=== PATIENT | female | born 1945 | race Caucasian/White ===

== ENCOUNTER 2025-01-10 13:14 | Inpatient (IN) | payer OTHER, SELFPAY ==
[2025-01-10] VITALS (17 sets, daily range): BP systolic 115–133; BP diastolic 57–75; PULSE 83–88; RESP 16–21; TEMP 37.1–37.5; O2SAT 95–100; BMI 21.9; BMI 24.3
--- OUTSIDE RECORDS SUMMARY | 2025-01-10 13:16 | XMS_ITS | Clinical Summary ---
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 She thinks maybe they said it had caused swelling and redness?? Medications gabapentin (NEURONTIN) 600 mg tablet Take 1.5 tablets (900 mg) by mouth 2 times a day 5 Active traMADol (ULTRAM) 50 mg tablet Take 1 tablet (50 mg) by mouth 2 times a day 5 Active albuterol HFA (PROVENTIL,PROAIR ,VENTOLIN) 108 (90 Base) MCG/ACT inhaler Inhale 1 puff orally every 6 hours as needed 9 Active allopurinol (ZYLOPRIM) 100 mg tablet Take 1 tablet (100 mg) by mouth 4 Active aspirin 81 mg enteric coated tablet Take 1 tablet (81 mg) by mouth 5 Active atorvaSTATin (LIPITOR) 40 mg tablet Take 1 tablet (40 mg) by mouth 5 Active ALLERGY RELIEF, CETIRIZINE, 10 MG tablet Take 1 tablet (10 mg) by mouth 1 time per day 5 Active FARXIGA 10 MG tablet Take 1 tablet (10 mg) by mouth 5 Active furosemide (LASIX) 40 mg tablet Take 1.5 tablets (60 mg) by mouth as needed needed for weight gain 3lbs in one day or 5lbs in a week 5 Active semaglutide (OZEMPIC) 4 mg/3 mL subcutaneous injection solution (pen) Inject 1 mg under the skin 5 Active Glucose 4-6 GM-MG CHEW Chew 4 g as needed 6 Active insulin aspart (NOVOLOG) SOPN subcutaneous injection (pen) Inject 2-8 Units under the skin as needed 4 Active isosorbide MONOnitrate (IMDUR) 30 mg SR tablet (24 hr) Take 0.5 tablets (15 mg) by mouth 1 time a day in the morning 4 Active L-METHYLFOLATE CALCIUM PO Take 1 tablet by mouth 2 times a day 5 Active losartan 25 mg tablet Take 0.5 tablets (12.5 mg) by mouth 5 Active meclizine (ANTIVERT) 25 mg tablet Take 1 tablet (25 mg) by mouth 3 times a day 4 Active metoprolol succinate (TOPROL XL) 25 mg SR tablet (24 hr) Take 1 tablet (25 mg) by mouth 1 time per day 4 Active mirtazapine (REMERON) 30 mg tablet Take 1.5 tablets (45 mg) by mouth every night at bedtime 4 Active nitroglycerin (NITROSTAT) 0.4 mg sublingual tablet Dissolve 1 tablet (0.4 mg) under the tongue as needed 5 Active omeprazole 20 mg enteric coated tablet Take 1 tablet (20 mg) by mouth 2 times a day 5 Active OZEMPIC, 2 MG/DOSE, 8 MG/3ML subcutaneous injection solution (pen) Inject 2 mg under the skin 1 time a week 5 Active spironolactone (ALDACTONE) 25 mg tablet Take 0.5 tablets (12.5 mg) by mouth 1 time per day 5 Active Encounters Date Type Department Care Team Description 10/29/2024 4:27 PM CDT - 10/29/2024 11:59 PM CDT Hospital Encounter 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 No 09/16/2024 Does the patient display any signs or symptoms of abuse or neglect? No 09/16/2024 Comments No Sex and Gender Information Value Date Recorded Sex Assigned at Not on file Legal Sex Female 9:41 PM CDT Gender Identity Not on file Sexual Orientation Not on file Last Filed Vital Signs Vital Sign Reading Time Taken Comments Blood Pressure 96/54 09/16/2024 3:34 PM CDT Pulse 65 09/16/2024 3:34 PM CDT Temperature 36.2 C (97.2 F) 09/16/2024 3:34 PM CDT Respiratory Rate 16 09/16/2024 3:34 PM CDT Oxygen Saturation 97% 09/16/2024 3:34 PM CDT Inhaled Oxygen Concentration - - Weight 57.6 kg (127 lb) 09/16/2024 11:51 AM CDT Height 157.5 cm (5' 2) 09/16/2024 11:51 AM CDT Body Mass Index 23.23 09/16/2024 11:51 AM CDT Plan of Treatment Health Maintenance Due Date Last Done Comments Hepatitis C Screening 1945 Pneumococcal Vaccine 50yr + (1 of 2 - PCV) 06/14/1966 TDAP/TD VACCINE (1 - Tdap) 06/14/1968 Zoster Vaccine (1 of 2) 06/14/1997 [employer] Directive document 06/14/2012 RSV Vaccine, Adult (1 - 1-dose 75+ series) 06/14/2022 Covid-19 Vaccine (1 - 2024- season) 2024 Influenza Vaccine (#1) 2024 , 01/15/2023, 02/24/2022, Additional history exists Creatinine 12/11/2025 12/11/2024, 10/17, 10/01/2024, Additional history exists Diabetes Screening 12/12/2027 12/11/2024, 0 11/20/2024, 10/29/2024, Additional history exists DEXA/Heel Scan 05/28/2028 05/28/2013 Hepatitis B Vaccine Aged Out No longe r eligible based on patient's age to complete this topic Procedures Procedure Name Priority Date/Time Associated Diagnosis Comments BASIC METABOLIC PANEL Routine 10/29/2024 4:29 PM CDT Chronic HFrEF (heart failure with reduced ejection fraction) (HCC) from Last 3 Months Results * (ABNORMAL) BASIC METABOLIC PANEL (10/29/2024 4:29 PM CDT) Glucose 150(H) 70 - 105 mg/dL 10/29/2024 4:57 PM CDT [facility] BUN 24 7 - 25 mg/dL 10/29/2024 4:57 PM CDT [facility] Creatinine 1.66(H) 0.60 - 1.30 mg/dL 10/29/2024 4:57 PM CDT [facility] BUN/Creatinine Ratio 14.5 6.0 - 25.0 10/29/2024 4:57 PM CDT [facility] Sodium 134(L) 136 - 145 meq/L 10/29/2024 4:57 PM CDT [facility] Potassium 3.9 3.5 - 5.1 meq/L 10/29/2024 4:57 PM CDT [facility] Chloride 96(L) 98 - 107 meq/L 10/29/2024 4:57 PM CDT [facility] CO2 29 21 - 31 meq/L 10/29/2024 4:57 PM CDT [facility] Anion Gap with K 13 5 - 15 meq/L 10/29/2024 4:57 PM CDT [facility] Calcium 9.4 8.6 - 10.3 mg/dL 10/29/2024 4:57 PM T [facility] Age 79 Years 10/29/2024 4:57 PM CDT [facility] eGFRcr() 32(L) >=60 mL/min/1.7 3m2 10/29/2024 4:57 PM CDT [facility] Comment:Estimated GFR calcul ated using the 2020 CKD-EPI creatinine equation Blood BLOOD SPECIMEN / Unknown Venipuncture / Unknown 10/29/2024 4:29 PM CDT 10/29/2024 4:30 PM CDT us 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
--- OUTSIDE RECORDS SUMMARY | 2025-01-10 13:16 | XMS_ITS | Clinical Summary ---
Author Organization [facility] [facility] Address [address] [place] [id number] Care Team Providers Care Nurse Unit Manager Name Role Phone Que Gutierrez MD Primary Care Provider Nurses, Advanced Heart Failure Unavailable + Rajesh Holm [facility] Unavailable [phone] Megan Hurtado RN Unavailable Carleen Forrester RN Unavailable [phone] Ella Pritchett RN Unavailable Allergies Active Allergy Reactions Criticality Noted Date Comments Latex Rash 01/03/2008 Morphine *Unknown 01/03/2008 Pt stated [facility] [place] this when she was hospitalized for a ND. She thinks maybe they said it had caused swelling and redness?? Medications glucose 4 gram chewable tabletIndications :Type 2 diabetes mellitus without complication (HC) Take 1 tablet by mouth each time if needed for Blood Gluc < Specify. 10 tablet 12 016 Active albuterol HFA 90 mcg/actuation inhalerIndication s:Cough INHALE TWO PUFFS BY MOUTH 4 TIMES DAILY NEEDED 1 Inhaler 12 019 Active meclizine (ANTIVERT) 25 mg tabletIndications :Vertigo Take 1 Tablet (25 mg) by mouth three times daily. 270 Tablet 2 024 Active A-Skjtjjd-A6 Thwu-Ijwbzs-B32 (Foltanx) 2-3-35 mg tabIndications:Di abetic peripheral neuropathy (HC) Take 1 tablet by mouth twice daily 180 Tablet 3 025 Active transmitter (Dexcom G6 Transmitter) for continuous blood glucose monitor (CGM)Indications: Type 2 diabetes mellitus without complication, with long-term current use of insulin (HC) TO BE USED TO READ BLOOD SUGAR AND FOLLOW MANUFATURER DIRECTIONS 1 Each 3 025 Active furosemide 40 mg tabletIndications :Chronic systolic congestive heart failure (HC) Take 1 and one-half tablets (60mg) of Lasix NEEDED for weight gain of 3lbs in 1 day or 5lbs in 1 week. 135 Tablet 1 025 Active atorvastatin 40 mg tabletIndications :Coronary artery disease due to lipid rich plaque Take 1 Tablet (40 mg) by mouth at bedtime. 90 Tablet 3 025 Active losartan 25 mg tabletIndications :Chronic HFrEF (heart failure with reduced ejection fraction) (HC) Take 0.5 Tablets (12.5 mg) by mouth once daily. 45 Tablet 3 025 Active spironolactone 25 mg tabletIndications :Chronic HFrEF (heart failure with reduced ejection fraction) (HC) Take 0.5 Tablets (12.5 mg) by mouth once daily. 45 Tablet 3 025 Active sensor (Dexcom G6 Sensor) for continuous blood glucose monitor (CGM)Indications: Type 2 diabetes mellitus without complication, with long-term current use of insulin (HC) To be used to read blood sugars, follow advertising supervisor directions. 9 Each 3 025 Active blood-glucose meterIndications: Type 2 diabetes mellitus without complication, with long-term current use of insulin (HC) As directed. Dispense meter covered by pts insurance. 1 Each 025 Active lancetsIndication s:Type 2 diabetes mellitus without complication, with long-term current use of insulin (HC) As directed. Test 4 times per day. 100 Each 12 025 Active cetirizine (Allergy Relief (cetirizine)) 10 mg tabletIndications :Hayfever Take 1 Tablet (10 mg) by mouth once daily. 90 Tablet 4 025 Active isosorbide mononitrate (IMDUR) 30 mg extended release tablet 24 HourIndications:A SCVD (arteriosclerotic cardiovascular disease) Take 0.5 Tablets (15 mg) by mouth once daily. 45 Tablet 4 025 Active omeprazole 20 mg tabletIndications :Chronic GERD Take 1 Tablet (20 mg) by mouth two times daily. 180 Tablet 3 025 Active mirtazapine (REMERON) 30 mg tabletIndications :Depression, recurrent Take 1.5 Tablets (45 mg) by mouth at bedtime. 135 Tablet 3 025 Active metoprolol succinate (Toprol XL) 25 mg Sustained-Release tabletIndications :Acute on chronic systolic congestive heart failure (HC) Take 1 Tablet (25 mg) by mouth once daily. 90 Tablet 3 025 Active allopurinoL (ZYLOPRIM) 100 mg tabletIndications :Idiopathic gout, unspecified chronicity, unspecified site Take 1 Tablet (100 mg) by mouth once daily. 90 Tablet 3 025 Active EPINEPHrine (EpiPen) 0.3 mg/0.3 mL auto-injectorIndi cations:Angioedem a, initial encounter Inject 0.3 mg (1 Pen) intramuscular one time if needed for Allergic Reaction for up to 1 dose. 1 Each 1 025 Active aspirin enteric coated 81 mg tabletIndications :ASCVD (arteriosclerotic cardiovascular disease) Take 1 Tablet (81 mg) by mouth once daily with a meal. 90 Tablet 3 025 Active nitroglycerin 0.4 mg sublingual tabletIndications :Chronic stable angina DISSOLVE ONE TABLET UNDER THE TONGUE EVERY 5 MINUTES NEEDED FOR CHEST PAIN. DO NOT EXCEED A TOTAL OF 3 DOSES IN 15 MINUTES 25 Tablet 025 Active Farxiga 10 mg tabletIndications :Chronic systolic congestive heart failure (HC) Take 1 Tablet (10 mg) by mouth once daily. 30 Tablet 11 025 Active insulin aspart (U-100) (NovoLOG Flexpen U-100 Insulin) 100 unit/mL (3 mL) penIndications:Ty pe 2 diabetes mellitus without complication, with long-term current use of insulin (HC) Take 10 units before supper meal. 45 mL 025 Active Lantus Solostar U-100 Insulin 100 unit/mL (3 mL) penIndications:Ty pe 2 diabetes mellitus without complication, with long-term current use of insulin (HC) Inject 16 units subcutaneous before bedtime. Product desired: LANTUS WALTEROSTAR 15 mL 1 025 2025 Active blood sugar diagnostic (OneTouch Ultra Test) stripIndications: Type 2 diabetes mellitus without complication, with long-term current use of insulin (HC) USE TO TEST BLOOD SUGARS 4 TIMES A DAY DUE TO FLUCTUATING BLOOD SUGARS 400 Each 3 025 Active lancets (OneTouch Delica Plus Lancet) 33 gauge miscIndications:T ype 2 diabetes mellitus without complication, with long-term current use of insulin (HC) Use to check blood sugar 4 times daily 400 Each 3 025 Active traMADoL (ULTRAM) 50 mg tabletIndications :Chronic bilateral low back pain without sciatica TAKE 1 TO 2 TABLETS BY MOUTH AT BEDTIME NEEDED FOR PAIN 60 Tablet 025 Active gabapentin (NEURONTIN) 600 mg tabletIndications :Peripheral polyneuropathy TAKE 1 & 1/2 (ONE & ONE-HALF) TABLETS BY MOUTH THREE TIMES DAILY 405 Tablet 2 025 Active semaglutide (Ozempic) 2 mg/dose (8 mg/3 mL) subcutaneous penIndications:Ty pe 2 diabetes mellitus with complication (HC) Inject 2 mg subcutaneous once weekly. 9 mL 3 025 Active Farxiga 10 mg tabletIndications :Chronic systolic congestive heart failure (HC) Take 1 Tablet (10 mg) by mouth once daily. BMP labs 1 week after starting 30 Tablet 3 025 2024 Discontinued gabapentin 600 mg tabletIndications :Peripheral polyneuropathy TAKE 1 & 1/2 (ONE & ONE-HALF) TABLETS BY MOUTH THREE TIMES DAILY 405 Tablet 025 2024 Discontinued blood sugar diagnostic (Blood Glucose Test) stripIndications: Type 2 diabetes mellitus without complication, with long-term current use of insulin (HC) Test 4 times per day. 100 Each 12 025 2024 Discontinued traMADoL (ULTRAM) 50 mg tabletIndications :Chronic bilateral low back pain without sciatica TAKE 1 TO 2 TABLETS BY MOUTH AT BEDTIME NEEDED FOR PAIN 60 Tablet 025 2024 Discontinued semaglutide (OZEMPIC) 1 mg/dose (4 mg/3 mL) subcutaneous penIndications:Ty pe 2 diabetes mellitus with complication (HC) Inject 1 mg subcutaneous once weekly. 9 mL 3 025 2024 Discontinued(* Medication adjustment) insulin aspart (U-100) (NovoLOG Flexpen U-100 Insulin) 100 unit/mL (3 mL) penIndications:Ty pe 2 diabetes mellitus without complication, with long-term current use of insulin (HC) Take 10 units before supper meal. 3 Each 3 025 2024 Discontinued(* Availability/F ormulary change/Cost of medication) Active Problems Problem Noted Date Diagnosed Date Encounter for screening for colorectal cancer in high risk patient 07/31/2024 Polyp of hepatic flexure of colon 07/31/2024 Rectal polyp 07/31/2024 Chronic HFrEF (heart failure with reduced ejection fraction) 07/01/2024 Sick sinus syndrome 07/18/2023 Polyp of colon 09/25/2022 Gout 12/14/2021 COVID-19 03/27/2021 Vomiting 03/26/2021 Sore throat 03/26/2021 Chronic stable angina 06/23/2020 YAMILETH 04/16/2013 AHI-15 04/10/2017 Chronic back pain 02/27/2016 Insomnia, idiopathic 02/27/2016 Diabetic gastroparesis assoc iated with type 2 diabetes mellitus 12/28/2015 GARTH (acute kidney injury) 05/27/2015 Type 2 diabetes mellitus with complication 04/27 CAD (coronary artery disease) 10/31/2012 Overview (05/22/2013): - By history, anterior wall myocardial infarction in January, with PTCA and stent implantation in the left anterior descending and diagonal branch in [employer]. - Recurrent chest discomfort February, with repeat angiography at the [facility] in [place] showing patent coronary anatomy. - Cardiac catheterization May 01, 2008 at [facility] with right heart hemodynamics within normal limits, left main free of significant narrowing, circumflex free of significant narrowing, LAD with patent stents in both the LAD and first diagonal branch, RCA (dominant) 30% proximal stenosis. - Walking adenosine Myoview study 06/02/2009 with no evidence of myocardial ischemia. - 04/02/2013 PET mycardial perfusion with a medium-sized area of moderate to severe non-transmural to transmural infarction in the mid and apical anterior, anteroseptal wall, the apical inferior wall, and the apex. No significant ischemia was identified. Overall left ventricular systolic function was abnormal with regional akinesis of the apex. Dual implantable cardioverter-defibrillator in s itu 10/31/2012 Overview (05/22/2013): - Primary prevention initially placed in 2006 in [employer] - has a SJM Riata RV lead which is on recall. Device has reached ANOOP as of 03/26/2013 - 05/21/2013 status post ICD system extraction with re-implantation of a dual chamber ICD Ischemic cardiomyopathy 10/31/2012 Obstructive sleep apnea (adult) (pediatric) 07/2011 Dysphagia, unspecified(787.20) 03/29/2011 Overview (03/29/2011): EGD 03/2011 dilation of possible cervical web COPD (chronic obstructive pulmonary disease) Cough 10/02/2010 Chest pain, unspecified 10/02/2010 Gout, unspecified 10/02/2010 Other and unspecified hyperlipidemia 10/02/2010 GERD (gastroesophageal reflux disease) 1 Insomnia, unspecified 10/02/2010 CKD (chronic kidney disease) stage 3, GFR 30-59 ml/min 07/22/2008 Hx-TIA (transient ischemic attack) 05/01/2008 Sensorineural hearing loss, bilateral 03/30/2008 CHF (congestive heart failure) Overview (01/09/2008): EF 40% 08/24 Neuropathy, peripheral Fibromyalgia Mild depression ASCVD (arteriosclerotic cardiovascular disease) Overview (07/22/2008): ND by echocardiogram Stents to LAD in 2002 (in [facility]) Repeat coronary angiogram without intervention later in 2002 (in [place], [place]) Ejection fraction about 40% in 2004 DIAGNOSTIC SUMMARY; S/P angio 05/01/08: The LMCA is free of significant disease. The LAD has patent stent(s) from a previous procedure and is free of significant disease. The Circumflex is free of significant disease. The RCA is dominant. 30% stenosis in the Proximal RCA LEFT VENTRICULAR FUNCTION Left ventricular ejection fraction based on LV Gram is 40%. LV Pressure = 107/13. There was no mitral insufficiency. HEMODYNAMICS RA=6; PW=10; PA=25/13, mean 18; RV=25/8; Encounter for long-term (current) use of other m edications Abdominal pain, diffuse LAZCANO (dyspnea on exertion) Resolved Problems Problem Noted Date Diagnosed Date Resolved Date EVE CARE CONTRACT 01/14/2010 012 Overview (01/14/2010): This patient, PCP and Care Guide have signed a letter agreeing on a set of goals for diabetes, hypertension and/or CHF. Please look for [facility] Care Goal Contract in Chart Review/ Letters and support this effort. Please direct questions to Care Guide Ophelia Matos Phone number [phone] Chest pain 05/01/2008 10/02/2010 Renal insufficiency 05/01/2008 07/23/19 09 DIABETES TYPE II WITHOUT COM PLICATIONS OR UNSPECIFIED 05/21/2003 07/22/2008 Diabetes mellitus 04/27/2015 Overview (07/22/2008): Hemoglobin A1C 6.3% in 12/24 Chronic back pain 02/27/2016 Encounters Date Type Department Care Team Description 01/02/2025 Telephone [facility] [address] [facility] [address] [place] [address] Rajesh Holm, [facility] Concerns 12/31/[address] [phone] Que Gutierrez MD Medication Management (Multiple med ) 12/26/[address] [phone] Que Gutierrez MD Refill Request (Tramadol, Gabapentin) 12/20/[address] [phone] Que Gutierrez MD Refill Request (Onetouch Ultra Test, Onetouch Delica Plus Lancet) 12/15/2024 Telephone [facility] [address] [place] [address] Que Gutierrez MD Refill Request (Novolog Flexpen/) 12/13/2024 Refill [facility] [address] [facility] [address] [place] [address] Yulissa Lao NP Refill Request (Farxiga) 12/12/2024 Telephone [facility] [address] [place] [address] Que Gutierrez MD Medication Management 12/11/2024 2:30 PM CDT Office Visit [facility] [address] [facility] [address] [place] [address] Rajesh Holm [facility] Follow Up (3 month f/u. Labs prior. 11/21 device check. Pt states feeling not great. Had a fall in September and had a cut on her face. No cardiac symptoms reported. ) 12/11/2024 1:54 PM CDT - 12/11/2024 11:59 PM CDT Hospital Encounter [facility] [address] [place] [address] Chronic HFrEF (heart failure with reduced ejection fraction) (HC) 12/11/2024 Travel 12/02/[address] [address] Que Gutierrez MD Medication Management (Novalog) 12/01/2024 4:00 PM CDT Office Visit [address] [phone] Que Gutierrez MD Hospital F/U 12/01/[address] [address] Que Gutierrez MD Refill Request (Nitroglycerin) 12/01/2024 Travel 11/28/[address] [place] [address] Que Gutierrez MD Refill Request (Aspirin Enteric Coated, Tramadol) 11/26/2024 Telephone [facility] [address] [place] [address] [place] [address] Rajesh Holm, [facility] Concerns 11/25/[address] [phone] Que Gutierrez MD Questions 11/25/[address] [phone] Que Gutierrez MD Results 11/24/2024 11:16 AM CDT - 11/24/2024 1:16 PM CDT Emergency [facility] [address] [place] [address] Doroteo Peters PA Angioedema, initial encounter (Primary Dx) Discharge Disposition: Home Self Care 11/24/2024 Travel 11/20/2024 2:00 PM CDT Office Visit [address] [address] Que Gutierrez MD Diabetes 11/20/2024 Travel 11/06/[address] [phone] Que Gutierrez MD Medication Management (Needs refill of Cetirzine and Isosorbide ) 10/22/[address] [address] Que Gutierrez MD Refill Request 10/22/[address] [phone] Que Gutierrez MD Refill Request (tramadol) 10/22/[address] [address] Que Gutierrez MD Medication Management (Test Strips) from Last 3 Months Immunizations Immunization Administration Dates Next Due Influenza A (H1N1), Inactiva haylie (Age >=3 Years) 03/01/2009 Influenza, High-dose Inactivated 01/01/2014 Influenza, High-dose Quadriv alent Inactivated 02/24/2022,12/20/2019 Influenza, IIV3 (Age 6-35 mos) 01/08/2007 Influenza, IIV3 (Age >=3 years) 12/26/19 13,03/07/2011,03/01/2009,2007,01/17/2006,03/22/2004 Influenza, IIV4 04/22/2021,12/22/2016,01/15/2015 Influenza, Inactivated AIIV4 (Age 65+ Years) Preserv Free 01/15/2023 Influenza, Inactivated IIV3 (Age 65+ Years) Preserv Free 01/16/2024,01/21/2019,12/11/2017 Pneumococcal Poly,23-Valent (Pneumovax) 01/21/2019,10/05/2010,03/22/2004 Pneumococcal conj 13-Valent (Prevnar 13) 01/15/2015 Tdap 01/21/2019 Zoster (Shingrix-RZV, recombinant) 12/20/2019, Family History Medical History Relation Name Comments Allergies Brother 3 Diabetes Brother 4 Allergies Father Cancer-prostate Father Stroke Maternal Grandfather Diabetes Maternal Grandmother Heart Disease Maternal Grandmother Allergies Mother Diabetes Mother Heart Disease Mother Hypertension Mother Cancer Paternal Grandmother Alcohol/Drug Paternal Uncle Allergies Sister 2 Cancer Sister 2 Diabetes Sister 3 Thyroid Disease Sister 4 Cancer-breast No Family History Relation Name Status Comments Brother 1 Alive x3, DM2 Brother 2 5 Brother 3 Brother 4 Daughter 1 Alive Daughter 2 Alive Father (Age 75) Prostate c ancer Half-Sister Maternal Grandfather Maternal Grandmother Mother (Age Late 50's) DM2 , CHF, CKD Paternal Grandfather Paternal Grandmother Paternal Uncle Sister 1 Alive x6, 2 with DM2 Sister 2 Sister 3 Sister 4 Son 1 Alive Son 2 Alive Social History Tobacco Use Types Packs/Day Years Used Date Smoking Tobacco: Never Smokeless Tobacco: Never Tobacco Cessation:Counseling Given: Yes Comments: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 4 07/01/2024 Alcohol Use Answer Date Recorded How often do you have a drink containing alcohol ? 1 12/11/2024 How many drinks containing a lcohol do you have on a typical day when you are drinking? 0 12/11/2024 How often do you have five or more drinks on one occasion? 0 12/11/2024 Financial Resource Strain Answer Date R ecorded Difficulty of Paying Living Expenses 3 07/01/2024 Difficulty of Paying Living Expenses Not on file 07/01/2024 Food Insecurity Answer Date Recorded Do you worry your food will run out before you are able to buy more? 1 07/01/2024 Transportation Needs Answer Date Record ed Does lack of transportation keep you from medica l appointments? 1 07/01/2024 Does lack of transportation keep you from work, meetings or getting things that you need? 1 07/01/2024 Housing Stability Answer Date Recorded What is your housing situation today? 1 07/01/2024 Interpersonal Safety Answer Date Record ed Are you being hit, kicked, p ushed or yelled at (see row info)? No 11/24/2024 Interpersonal Safety Abuse 12 - 18 Not on file 11/24/2024 Interpersonal Safety Ambulatory Vulnerability No t on file 11/24/2024 Utilities Answer Date Recorded Do you have trouble paying f or utilities (for example, heat, electricity, water, phone)? 1 07/01/2024 Comments No Sex and Gender Information Value Date Recorded Sex Assigned at Not on file Legal Sex Female 5:18 AM [employer] Gender Identity Not on file Sexual Orientation Not on file Occupation Industry Job Start Date Job End Date Not on file Not on file Not on file Not on file Obstetrics History Para Term AB IAB SAB Ectopic Multiple Livin g Live Births 6 4 2 2 4 Date Outcome GA Total Labor Labor/2nd/3rd Weight Sex Type Anes PTL Gisell A1 A5 Name Clin Para Para Para Para SAB SAB Last Filed Vital Signs Vital Sign Reading Time Taken Comments Blood Pressure 100/62 12/11/2024 2:17 PM CDT Pulse 75 12/11/2024 2:17 PM CDT Temperature 36.7 C (98 F) 11/24/2024 11:20 AM CDT Respiratory Rate 16 11/24/2024 11:20 AM CDT Oxygen Saturation 96% 12/11/2024 2:17 PM CDT Inhaled Oxygen Concentration - - Weight 60.3 kg (133 lb) 12/11/2024 2:17 PM CDT Height 157.5 cm (5' 2) 12/11/2024 2:17 PM CDT Body Mass Index 24.33 12/11/2024 2:17 PM CDT Plan of Treatment Upcoming Encounters Date Type Department Care Team (Late st Contact Info) Description 02/17/2025 2:00 PM [employer] Office Visit [facility] [address] [place] [address] Que Gutierrez MD [address] [place] [address] 03/23/2025 Cardiac Device Check [facility] [phone] Health Maintenance Due Date Last Done Comments RSV vaccine for adults or (1 - 1-dose 75+ series) 06/14/2022 COVID-19 vaccine series (2023- season) 2024 Influenza Vaccine (#1) 2024 , 01/15/2023, 04/22/2021, Additional history exists Medicare Wellness for age 65+ 07/22/2025 07/21/2024, 07/17/2023, 04/27/2022, Additional history exists Depression screening for age 12+ 09/15/2025 09/15/2024, 07/23/2024, 07/22/2024, Additional history exists BMI (ht and wt on same day) for age 18+ 12/11/2025 12/11/2024, 09/24/2024, 08/28/2024, Additional history exists Tetanus booster 01/21/2029 01/21/2019 DEXA/DXA scan for age 65+ Completed 05/28/2013 Pneumococcal series for age 50+ Completed 01/21/2019, 01/15/2015, 10/05/2010, Additional history exists Hepatitis C screening for age 18-79 Completed 11/18/2019 Zoster (shingles) series for age 50+ Completed 12/20/2019, 04/21/2019 Hepatitis B series for 19+ Aged Out N o longer eligible based on patient's age to complete this topic Medical Devices Implanted Type Area Pet Walker Device Identifier Shelf Expiration Date Model / Serial / Lot Dual Chamber Icd Implanted:2013 by Torsten Martin MD (Quantity not on file) ICD Only [employer] [address], [id number] / / Rishabh Gynemes [id number] - [id number] Implanted:Qty: 1 on 07/21/2008 at [facility] GPSL# / / [id number] Procedures Procedure Name Priority Date/Time Associated Diagnosis Comments PRO-BNP Today 12/11/2024 2:01 PM CDT Chronic HFrEF (heart failure with reduced ejection fraction) (HC) BASIC METABOLIC PANEL Today 12/11/2024 2:01 PM CDT Chronic HFrEF (heart failure with reduced ejection fraction) (HC) LIPID PANEL W REFLEX MEASURED LDL Routine 11/20/2024 3:33 PM CDT Mixed hyperlipidemia HEMOGLOBIN A1C Routine 11/20/2024 3:33 PM CDT Type 2 diabetes mellitus without complication, with long-term current use of insulin (HC) ANTI HCV Routine 11/18/2019 2:14 PM CDT Encounter for hepatitis C screening test for low risk patient XR DXA BONE DENSITY 2 SITES AXIAL Routine 05/28/2013 1:20 PM CDT Menopausal and perimenopausal disorder from Last 3 Months or Most Recently Relevant to Health Maintenance Results * PRO-BNP (12/11/2024 2:01 PM CDT) PRO-BNP 350 <450 pg/mL 12/11/2024 2:33 PM CDT [facility] Blood BLOOD SPECIMEN / Unknown Venipuncture / Unknown 12/11/2024 2:01 PM CDT 12/11/2024 2:01 PM CDT Narrative [facility] - 12/11/2024 2:33 PM CDT The following cut-points have been suggested for the use of proBNP for the diagnostic evaluation of heart failure (HF) in patient with acute dyspnea. Patients with eGFR >= 60 Diagnosis (rule in CHF) <50 Years Old 450 pg/mL 50 - 75 Years Old 900 pg/mL >75 Years Old 1800 pg/mL Exclusion (rule out CHF) Age Independent 300 pg/mL A cutoff of 1200 pg/mL for patients with an eGFR <60 yields a diagnostic sensitivity of 89% and specificity of 72% for acute congestive heart failure. Rajesh Willyuly [facility] SEND OUTS Final Result [facility] [address] [place] [address] * (ABNORMAL) BASIC METABOLIC PANEL (12/11/2024 2:01 PM CDT) SODIUM 136 136 - 145 mmol/L 12/11/2024 2:31 PM CDT [facility] POTASSIUM 4.8 3.5 - 5.1 mmol/L 12/11/2024 2:31 PM CDT [facility] CHLORIDE 97(L) 98 - 107 mmol/L 12/11/2024 2:31 PM CDT [facility] CO2,TOTAL 28 22 - 29 mmol/L 12/11/2024 2:31 PM CDT [facility] ANION GAP 11 5 - 18 12/11/2024 2:31 PM CDT [facility] GLUCOSE 205(H) 70 - 99 mg/dL 12/11/2024 2:31 PM CDT [facility] CALCIUM 9.5 8.8 - 10.4 mg/dL 12/11/2024 2:31 PM CDT [facility] Comment: Reference ranges for this test were updated on 01/22/2024 to reflect our healthy population more accurately. Reference range changes are not retroactively applied to results, but previous results using the same methodology can be interpreted in the context of the new reference range. BUN 24(H) 8 - 23 mg/dL 12/11/2024 2:31 PM CDT [facility] CREATININE 1.88(H) 0.50 - 0.90 mg/dL 12/11/2024 2:31 PM CDT [facility] BUN/CREAT RATIO 13 10 - 20 2:31 PM CDT [facility] eGFR 27(L) >90 mL/min/1. 73m2 12/11/2024 2:31 PM CDT [facility] Comment:As of 2021, eG FR is calculated by the CKD-EPI creatinine equation without race adjustment. eGFR can be influenced by muscle mass, exercise, and diet. The reported eGFR is an estimation only and is only applicable if the renal function is stable. Blood BLOOD SPECIMEN / Unknown Venipuncture / Unknown 12/11/2024 2:01 PM CDT 12/11/2024 2:01 PM CDT Rajesh Solismahin [facility] CHEMISTRY Final Result [facility] [address] [place] [address] * (ABNORMAL) HEMOGLOBIN A1C (11/20/2024 3:33 PM CDT) HEMOGLOBIN A1C 8.0(H) <5.7 % 11/21/2024 4:05 AM CDT [facility] Comment: For someone without known diabetes, a hemoglobin A1c value of 6.5% or greater indicates that they may have diabetes and this should be confirmed with a follow-up test. For someone with known diabetes, a value <7% indicates that their diabetes is well controlled and a value greater than or equal to 7% indicates suboptimal control. A1c targets should be individualized based on duration of diabetes, age, comorbid conditions, and other considerations. Currently, no consensus exists regarding use of hemoglobin A1c for diagnosis of diabetes for children. Blood BLOOD SPECIMEN / Unknown [facility] / Unknown 11/20/2024 3:33 PM CDT 11/20/2024 3:33 PM CDT Que Gutierrez MD CHEMISTRY Final R esult [facility] [address] [place] [address], * (ABNORMAL) LIPID PANEL W REFLEX MEASURED LDL (11/20/2024 3:33 PM CDT) [facility] CHOLESTEROL, TOTAL 116 <200 mg/dL 11/21/2024 4:01 AM [facility] TRIGLYCERIDES 226(H) <150 mg/dL 11/21/2024 4:01 AM [facility] Comment: If a non-fasting specimen was collected, consider repeat triglyceride testing on a fasting specimen if clinically indicated. Cindy et al. J. of Clin. Lipidol. 2015;9:129-169. HDL CHOLESTEROL 31(L) > OR = 50 mg/dL 11/21/2024 4:01 AM [facility] NON HDL CHOLESTEROL 85 <130 mg/dL (calc) 11/21/2024 4:01 AM [facility] Comment: For patients with diabetes plus 1 major ASCVD risk factor, treating to a non-HDL-C goal of <100 mg/dL (LDL-C of <70 mg/dL) is considered a therapeutic option. CHOL/HDLC RATIO 3.7 <5.0 (calc) 11/21/2024 4:01 AM [facility] LDL-CHOLESTEROL 57 mg/dL (calc) 11/21/2024 4:01 AM [facility] Comment: Reference range: <100 Desirable range <100 mg/dL for primary prevention; <70 mg/dL for patients with CHD or diabetic patients with > or = 2 CHD risk factors. LDL-C is now calculated using the Boni-Armstrong calculation, which is a validated novel method providing better accuracy than the Friedewald equation in the estimation of LDL-C. Boni SS et al. ANICETO. 2013;310(19): 6501-1212 (http://education.Manufacturers' Inventory.Seafile/faq/HUV192) Blood BLOOD SPECIMEN / Unknown [facility] / Unknown 11/20/2024 3:33 PM CDT 11/20/2024 3:33 PM CDT Que Gutierrez MD CHEMISTRY Final R esult [email or web address] [place] [address] [place] [address], * ANTI HCV (11/18/2019 2:14 PM CDT) [facility] HEPATITIS C ANTIBODY Non-React carolyn Non-React carolyn 11/18/2019 9:10 PM CDT [facility] Comment:Antibodies to HCV no t detected; does not exclude the possibility of exposure to HCV. Blood BLOOD SPECIMEN / Unknown Venipuncture / Unknown 11/18/2019 2:14 PM CDT 11/18/2019 2:14 PM CDT Que Gutierrez MD SEND OUTS Final R esult Performing Organization Address [facility]/ZIP Co de Phone Number [facility] [address] [place] [address], * (ABNORMAL) XR DXA BONE DENSITY 2 SITES (05/28/2013 1:20 PM CDT) Anatomical Region Laterality Modality Spine, HIPS, HIPL, HIPR Bone Den sitometry Narrative 05/29/2013 1:12 PM CDT Please see scanned document for results of this study. Procedure Note Rosita Elizabeth MD - 05/29/2013 Please see scanned document for results of this study. 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 Expl anation POLST 05/02/2019 10:32 AM POLST; RAÚL [place]; 05/01/19 Healthcare Directive 06/01/2015 8:48 AM HE ALTHCARE DIRECTIVE, 04/08/2015 Healthcare Directive 07/25/2008 * Partial Code (Latest Code Status on File) Date Activated Date Inactivated Comments 07/31/2024 1:15 PM 07/31/2024 4:52 PM Question Answer Comments Cardio Resuscitation: No Chest CompressionsNo De fibrillation/Cardioversion Ventilation: No Restrictions Drug Protocol: No Restrictions * Full Code Date Activated Date Inactivated Comments 07/31/2024 12:06 PM 07/31/2024 1:15 PM Question Answer Comments Code Status Discussion: Unable to Assess Preferences, Provider to review later * DNR Date Activated Date Inactivated Comments 07/01/2024 9:02 PM 07/04/2024 3:51 PM Question Answer Comments Code Status Discussion: Reviewed Preferences * Full Code Date Activated Date Inactivated Comments 01/24/2023 2:56 PM 01/24/2023 7:04 PM Question Answer Comments Code Status Discussion: Other * Full Code Date Activated Date Inactivated Comments 09/25/2022 11:12 AM 09/25/2022 4:04 PM Question Answer Comments Code Status Discussion: Discussed Care Teams Nurse Unit Manager Relationship Specialty Start Date End Date Que Gutierrez MD [address] [facility] [place] [address] PCP - General 05/12/15 Nurses, Advanced Heart Failure [address] [address] Heart Failure Care Coordination 06/22/15 Rajesh Holm MBC [address] [address] [place] [address] Heart Failure Care Coordination 02/01/16 Megan Hurtado RN [address] [place] [phone] [phone] Manager Of Financial Planning - [facility] Registered Nurse 01/18/16 Carleen Forrester RN [address] [place] [phone] Manager Of Financial Planning - [facility] Registered Nurse 06/23/19 Ella Pritchett RN [address] [place] [address] [phone] Manager Of Financial Planning - [facility] Registered Nurse 01/07/21
[2025-01-10 13:21] LABS: Glucose, Point-of-Care* 504 mg/dl (60-115)
--- NOTE | 2025-01-10 13:21 | ED.GENADULT ---
HPI - General Adult General Date Seen: 01/10/25 Chief complaint: Diabetic Related Problem Stated complaint: Diabetic complications Time Seen by Provider: 01/10/25 13:21 History of Present Illness HPI narrative: 79-year-old female brought to the ER today by ambulance from her home, in [place]. We do not have many previous records for here in the [place] system but she does have records in the [facility] system. 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 Past surgical history includes hysterectomy, breast lumpectomy, carpal tunnel, vaginal biopsy, Per cardiology note from November 2024 Medications: Albuterol 180 mcg 4 times daily as needed Allopurinol 100 mg daily Aspirin 81 mg daily Atorvastatin 40 mg nightly Cetirizine 10 mg daily Dapagliflozin 10 mg daily Epinephrine 0.3 mg as needed Furosemide 60 mg daily for weight gain exceeding 3 lb/day or 5 lb/week Foltanx 2-3-35 mg twice daily Gabapentin 900 mg 3 times daily Insulin aspart 10 units with supper Isosorbide mononitrate ER 15 mg daily Losartan 12.5 mg daily Meclizine 25 mg 3 times daily as needed Metoprolol succinate 25 mg daily Mirtazapine 45 mg nightly as needed Nitroglycerin 0.4 mg as needed Omeprazole 20 mg twice daily Semaglutide 1 mg weekly Spironolactone 12.5 mg daily Tramadol 50 to 100 mg twice daily as needed Triamcinolone 0.1% 3 times daily ICD INTERROGATION 07/02-11/21/24: Underlying rhythm:?Sinus rhythm at ~ 80 bpm with intact AV conduction Dylan data: atrial paced -?28%, ventricular paced -?<1% Atrial episodes:?None. Ventricular episodes: None. Histogram:?Appropriate heart rate distribution for lifestyle. ? TTE 04/18/24: 1. Normal LV size and wall thickness, calculated EF 42%. 2. 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 3. Normal RV size and function. 4. The aortic valve is sclerotic and trileaflet, no stenosis and no regurgitation. 5. Echo contrast was administered to enhance visualization of all LV segments Impression: Ms. Hina Rogers is 79 with coronary artery disease s/p anterior wall myocardial infarction with subsequent left anterior descending artery and diagonal branch percutaneous coronary intervention with stents in 2002. She has ischemic cardiomyopathy with mild left ventricular systolic dysfunction (LVEF ~45%). She had an ICD with a Riata RV lead implantation in 2006 for primary prevention against sudden cardiac . She reports NYHA class II function and features consistent with COPD without noa debi cardiac symptoms. She has lost 40 lb on semaglutide; her blood glucose and HbA1c has been elevated after the dose was cut. She is a regular pulse, is normotensive and euvolemic. Last HbA1c is 8% and LDL cholesterol 57 mg/dL. ? ? Plan: 1. Diabetic management per PCP 2. No cardiac medication changes. 3. Follow-up in 6 months with limited echocardiogram, ECG, proBNP, lipid profile, HbA1c, TSH, CBC and CMP Patient is brought to the ER today by EMS. She has actually been sick for 3 days, since Sunday. She recalls that she has been in her usual state of health over the past several days and weeks. Her blood sugar does tend to run high, around 250. She is currently only on Ozempic for glycemic control. She apparently had been on insulin in the past and other meds. She is not currently on those meds. Unclear why. Unclear if she want to stop them herself or for primary care provider took her off them. She says she does have a history of diverticulitis and history of bowel obstructions, also history of gastroparesis. She says she has never had abdominal surgery such as appendicitis, gallbladder, hysterectomy. No known history of pancreatitis. She was eating a lot of nuts and some apples on Sunday and then on Sunday evening she started having intermittent crampy diffuse abdominal pain. when she woke up on morning she was sick. She tried to drink quite a few oz of milk on morning try to make her stem pain get better, but it got worse. She started vomiting (mostly nuts and milk). No blood in her emesis. She had ongoing pain and several episodes of vomiting on and then continued into Sunday. Today her pain is a little bit less severe but it is not going away. She decided she needed to come to the hospital. So she called the ambulance. Her primary care provider is Dr. Gutierrez, in [place]. She has a previous medical care through the [facility] the [facility] system but says that she will ?never go back there!? After having been treated poorly during her past few visits. It looks like on phone call notes from her primary she had been on Lantus in November and there is a note from early December that indicated she wanted to go back up to 2 mg of Ozempic, but her PCP was concerned about nausea and vomiting issues in the past Per the [facility] medical record system it looks like she has some baseline chronic renal insufficiency. Creatinine has ranged 1.6 up to 1.8 over the past 6 months. Most recently was 1.8 on 12/11 24. On that day sodium was 136, potassium 4.8, chloride 97, bicarb 8, glucose 205, proBNP was 350. Most recent CBC was 06/23-WBC 5.5, hemoglobin 11.6, platelet 157 Liver function tests were normal on 07/01/2024 Hemoglobin A1c was 8.0 on 11/20/24 Related Data Home Medications ?Medication ?Instructions ?Recorded ?Confirmed albuterol sulfate 90 mcg/actuation 2 puff inhalation Q4-6H PRN 08/31/22 01/10/25 aerosol inhaler gabapentin 600 mg tablet 900 mg PO TID 08/31/22 01/10/25 allopurinol 100 mg tablet 100 mg PO DAILY 01/10/25 01/10/25 aspirin 81 mg tablet,delayed 81 mg PO DAILY 01/10/25 01/10/25 release atorvastatin 40 mg tablet 40 mg PO QPM 01/10/25 01/10/25 cetirizine 10 mg tablet 10 mg PO DAILY 01/10/25 01/10/25 dapagliflozin propanediol 10 mg 10 mg PO DAILY 01/10/25 01/10/25 tablet (Farxiga) epinephrine 0.3 mg/0.3 mL 0.3 mg IM ONCE PRN 01/10/25 01/10/25 injection, auto-injector furosemide 40 mg tablet 60 mg PO .prn 01/10/25 01/10/25 insulin aspart U-100 100 unit/mL 10 unit subcut DAILY 01/10/25 01/10/25 (3 mL) subcutaneous pen (Novolog FlexPen U-100 Insulin aspart) insulin glargine 100 unit/mL (3 16 unit subcut HS 01/10/25 01/10/25 mL) subcutaneous pen (Lantus Solostar U-100 Insulin) isosorbide mononitrate 30 mg 15 mg PO DAILY 01/10/25 01/10/25 tablet,extended release 24 hr losartan 25 mg tablet 12.5 mg PO DAILY 01/10/25 01/10/25 meclizine 25 mg tablet 25 mg PO TID PRN 01/10/25 01/10/25 mecobalamin-levomefolate 1 tab PO BID 01/10/25 01/10/25 calcium-pyridoxal phos 2 mg-3 mg-35 mg tablet (Foltanx) metoprolol succinate 25 mg 25 mg PO DAILY 01/10/25 01/10/25 tablet,extended release 24 hr mirtazapine 30 mg tablet 45 mg PO HS 01/10/25 01/10/25 nitroglycerin 0.4 mg sublingual 0.4 mg sublingual Q5M PRN 01/10/25 01/10/25 tablet omeprazole 20 mg tablet,delayed 20 mg PO BID 01/10/25 01/10/25 release semaglutide 2 mg/dose (8 mg/3 mL) 2 mg subcut .once weekly 01/10/25 01/10/25 subcutaneous pen injector (Ozempic) spironolactone 25 mg tablet 12.5 mg PO DAILY 01/10/25 01/10/25 tramadol 50 mg tablet 50 - 100 mg PO HS PRN pain 01/10/25 01/10/25 Allergies Allergy/AdvReac Type Severity Reaction Status Date / Time latex Allergy Unknown Verified 01/10/25 13:22 morphine Allergy Unknown Verified 01/10/25 13:22 [facility] Social History Smoking Status: Never smoker Exam Const: Vital Signs, click to edit/add: Vital Signs - 24 hr 01/10/25 13:22 01/10/25 14:12 01/10/25 14:19 Temperature 98.8 F Pulse Rate 83 84 Pulse Rate [Pulse Oximeter] 87 Respiratory Rate 16 Blood Pressure Blood Pressure [Ri ght Upper Arm] 130/75 Pulse Oximetry 98 97 98 Oxygen Delivery Me thod Room Air 01/10/25 14:34 01/10/25 14:38 01/10/25 14:45 Temperature Pulse Rate 84 83 83 Pulse Rate [Pulse Oximeter] Respiratory Rate 16 17 Blood Pressure 120/65 Blood Pressure [Ri ght Upper Arm] Pulse Oximetry 97 97 96 Oxygen Delivery Me thod 01/10/25 15:00 01/10/25 15:15 01/10/25 15:30 Temperature Pulse Rate 83 83 83 Pulse Rate [Pulse Oximeter] Respiratory Rate 16 18 19 Blood Pressure Blood Pressure [Ri ght Upper Arm] Pulse Oximetry 96 95 96 Oxygen Delivery Me thod 01/10/25 15:45 01/10/25 15:48 Temperature Pulse Rate 86 86 Pulse Rate [Pulse Oximeter] Respiratory Rate 17 17 Blood Pressure 120/72 Blood Pressure [Ri ght Upper Arm] Pulse Oximetry 100 99 Oxygen Delivery Me thod Course Vital Signs Vital signs: Initial Vital Signs Temperature 98.8 F 01/10/25 13:22 Temperature Source Temporal Artery Scan 01/10/25 13:22 Pulse Rate 87 01/10/25 13:22 Respiratory Rate 16 01/10/25 13:22 Blood Pressure 130/75 01/10/25 13:22 Blood Pressure Mean 93 01/10/25 13:22 Blood Pressure Position High-Fowlers 01/10/25 13:22 Pulse Oximetry 98 01/10/25 13:22 Oxygen Delivery Method Room Air 01/10/25 13:22 Vital Signs Temperature 98.8 F 01/10/25 13:22 Pulse Rate 87 01/10/25 13:22 Respiratory Rate 16 01/10/25 13:22 Blood Pressure 130/75 01/10/25 13:22 Pulse Oximetry 98 01/10/25 13:22 Oxygen Delivery Method Room Air 01/10/25 13:22 Temperature 98.8 F 01/10/25 13:22 Pulse Rate 86 01/10/25 15:48 Respiratory Rate 17 01/10/25 15:48 Blood Pressure 120/72 01/10/25 15:48 Pulse Oximetry 99 01/10/25 15:48 Oxygen Delivery Method Room Air 01/10/25 13:22 Medications Administered Medications: Generic Name Dose Route Start Last Admin Trade Name Freq PRN Reason Stop Dose Admin Ceftriaxone Sodium 1 gm/ 100 mls @ 200 mls/hr 01/10/25 15:40 01/10/25 16:08 Sodium Chloride IVPB 01/10/25 15:41 Not Given ONCE ONE Sodium Chloride 1,000 mls @ 1,000 mls/hr 01/10/25 15:45 01/10/25 15:53 0.9 % Sodium Chloride 1000 Ml IV 01/10/25 16:44 1,000 mls/hr .Q1H ARTURO Administration Discontinued Medications Generic Name Dose Route Start Last Admin Trade Name Freq PRN Reason Stop Dose Admin Sodium Chloride 1,000 mls @ 1,000 mls/hr 01/10/25 13:45 01/10/25 15:46 0.9 % Sodium Chloride 1000 Ml IV 01/10/25 14:44 Infused .Q1H ARTURO Infusion Ceftriaxone Sodium 1 gm/ 100 mls @ 200 mls/hr 01/10/25 15:38 01/10/25 15:47 Sodium Chloride IVPB 01/10/25 15:39 200 mls/hr ONCE ONE Administration Insulin Human Regular 10 unit 01/10/25 15:46 01/10/25 16:06 Insulin Regular, Human 100 Unit/Ml Vial SUBCUT 01/10/25 15:47 10 unit ONCE ONE Administration Ketorolac Tromethamine 15 mg 01/10/25 13:45 01/10/25 14:23 Ketorolac 15 Mg/Ml Inj IVP 01/10/25 13:46 Not Given ONCE ONE Ondansetron HCl 4 mg 01/10/25 13:45 01/10/25 14:41 Ondansetron 2 Mg/Ml Inj IVP 01/10/25 13:46 4 mg ONCE ONE Administration Medical Decision Making MDM Narrative Medical decision making narrative: 79-year-old female with complex presentation presenting by EMS to the ER. 1. She has had a 3 day history of colicky generalized abdominal pain and vomiting (nonbloody). She initially attributes this to eating a lot of knots on the day prior to developing symptoms and is concerned that she might have diverticulitis. Differential includes diverticulitis, pressure hanley or abscess, bowel obstruction, as well as other causes of abdominal pain such as pancreatitis, gastritis, peptic ulcer disease, colitis, among others. Laboratory workup shows mild leukocytosis with 92% neutrophils, suggestive of bacterial infection. LFTs are normal. Lipase is normal. Urinalysis is equivocal with trace leukocyte esterase but only 2-5 white cells per high-power field. She does have many bacteria. CT imaging is obtained without contrast due to acute kidney injury. It does not show any bowel obstruction, diverticulitis, appendicitis, or other acute surgical emergency. 2. Infectious disease. Patient is not febrile or ?toxic? appearing but does have leukocytosis and is medically frail with diabetes and other chronic medical conditions. No clear evidence for severe sepsis or septic shock. The CT scan does show that the patient has a low lying, ectopic lead position the right kidney with some perinephric stranding which is radiographically suggestive for pyelonephritis. Although urinalysis is not particularly abnormal, pyelonephritis of an ectopic kidney could certainly correlate with the patient's vomiting and generalized abdominal pain. Will start on IV Rocephin. Blood in urine cultures obtained. Lactic acid is normal. Blood pressure stable. She is not febrile or tachycardic. COVID/influenza/RSV PCR negative. She is not coughing. No chest pain or shortness of breath. 3. Cardiac. No chest pain or shortness of breath. We did check a screening EKG and troponin as potential cause for nausea and they are normal. 4. Renal/electrolyte. Patient does have chronic renal disease with recent creatinine ranging 1.6-1.88 over the past several months. Today creatinine has gone up to 2.0. Additionally BUN is up to 46 which is almost doubled from her prior BUN of 24 on 12/11. This was suggest dehydration and pre renal azotemia. Patient received IV fluid 2 L normal saline Sodium measures low at 123 but when corrected for hyperglycemia it corrects up to 131. 5. Endocrine. Patient does have poorly-controlled type 2 diabetes. She says she is currently only on Ozempic. Per her previous doctor notes it is difficult to determine what her regimen has been lately. Sounds like she had been on insulin. It apparently has been stopped at some point recently. She does have hyperglycemia but no laboratory evidence for DKA or HHS. 10 units of subcutaneous insulin administered here in the ER along with IV crystalloid. Discussed with our hospitalist, Dolores Aguirre. She accepts the patient for inpatient admission Discussed with the patient and her caregiver at her bedside. They are agreeable to the plan of care and admission. Lab Data Labs: Lab Results 01/10/25 01/10/25 01/10/25 Range/Units 13:20 13:50 13:51 WBC 12.70 H (4.50-11.00) K/uL RBC 3.55 L (4.00-5.20) m/uL Hgb 10.3 L (12.0-16.0) gm/dL Hct 30.7 L (33.0-51.0) % MCV 87 (80-100) fL MCH 29 (26-34) pg MCHC 34 (32-36) gm/dL RDW Coeff of Patricia 14.1 (11.5-15.5) % Plt Count 166 (140-440) K/uL Neut % (Auto) 91.9 H (42.0-72.0) % Lymph % (Auto) 3.9 L (20-44) % [place] % (Auto) 3.8 (0.0-11.0) % Eos % (Auto) 0.0 (0.0-7.0) % Baso % (Auto) 0.0 (0.0-3.0) % Neut # (Auto) 11.70 H (1.7-7.0) K/uL Lymph # (Auto) 0.50 L (0.90-2.90) K/uL [place] # (Auto) 0.50 (0.00-0.90) K/UL Eos # (Auto) 0.00 (0.00-0.50) K/uL Baso # (Auto) 0.00 (0.00-0.30) K/uL Abs Immat Gran (auto) 0.10 (0.00-0.30) K/uL Imm/Tot Granulo (auto) 0.4 % VBG pH 7.401 (7.32-7.43) VBG pCO2 33 L (40-50) mmHG VBG pO2 45.1 (25-47) mmHG VBG HCO3 21 (21-28) mmol/L Sodium 123 L* (135-149) mmol/L Potassium 4.6 (3.6-5.1) mmol/L Chloride 92 L (96-114) mmol/L Carbon Dioxide 20 (20-32) mmol/L Anion Gap 11 (7-15) mEq/L BUN 46 H (7-30) mg/dL Creatinine 2.0 H (0.5-1.5) mg/dL Estimated Creat Clear 18.63 Estimated GFR 25 ml/min Glucose 475 H* (60-115) mg/dL Lactate 1.5 (0.5-1.9) mmol/L Calcium 9.8 (8.4-10.6) mg/dL Magnesium 2.0 (1.5-2.6) mg/dL Total Bilirubin 0.6 (0.1-1.5) mg/dL AST 17 (12-35) U/L ALT 17 (4-35) U/L Alkaline Phosphatase 99 (40-150) U/L Troponin I < 0.01 (0.01-0.04) ng/mL Total Protein 6.2 (6.0-8.3) g/dL Albumin 3.3 (3.3-5.0) g/dL Lipase 79 (23-300) U/L Urine Color Yellow (Yellow) Urine Appearance Cloudy A (Clear) Urine pH 6.0 (5.0-8.5) Ur Specific Butler <= 1.005 (1.000-1.030) Urine Protein 2+ A (Negative) Urine Glucose (UA) 2+ A (Negative) Urine Ketones Negative (Negative) Urine Blood 3+ A (Negative) Urine Nitrite Negative (Negative) Urine Bilirubin Negative (Negative) Urine Urobilinogen 0.2 (0.2-1.0) Ur Leukocyte Esterase Trace A (Negative) Urine RBC 2-5 A (0-2) Urine WBC 2-5 (0-5) Ur Squamous Epith Cells Few (None-Few) Urine Bacteria Many A (None) SARS-CoV-2 (PCR) (Negative) Influenza Type A (PCR) (Negative) Influenza Type B (PCR) (Negative) RSV (PCR) (Negative) POC Glucose 504 H* (60-115) mg/dl POC Creatinine (0.6-1.3) mg/dl 01/10/25 01/10/25 Range/Units 14:06 14:18 WBC (4.50-11.00) K/uL RBC (4.00-5.20) m/uL Hgb (12.0-16.0) gm/dL Hct (33.0-51.0) % MCV (80-100) fL MCH (26-34) pg MCHC (32-36) gm/dL RDW Coeff of Patricia (11.5-15.5) % Plt Count (140-440) K/uL Neut % (Auto) (42.0-72.0) % Lymph % (Auto) (20-44) % [place] % (Auto) (0.0-11.0) % Eos % (Auto) (0.0-7.0) % Baso % (Auto) (0.0-3.0) % Neut # (Auto) (1.7-7.0) K/uL Lymph # (Auto) (0.90-2.90) K/uL [place] # (Auto) (0.00-0.90) K/UL Eos # (Auto) (0.00-0.50) K/uL Baso # (Auto) (0.00-0.30) K/uL Abs Immat Gran (auto) (0.00-0.30) K/uL Imm/Tot Granulo (auto) % VBG pH (7.32-7.43) VBG pCO2 (40-50) mmHG VBG pO2 (25-47) mmHG VBG HCO3 (21-28) mmol/L Sodium (135-149) mmol/L Potassium (3.6-5.1) mmol/L Chloride (96-114) mmol/L Carbon Dioxide (20-32) mmol/L Anion Gap (7-15) mEq/L BUN (7-30) mg/dL Creatinine (0.5-1.5) mg/dL Estimated Creat Clear Estimated GFR ml/min Glucose (60-115) mg/dL Lactate (0.5-1.9) mmol/L Calcium (8.4-10.6) mg/dL Magnesium (1.5-2.6) mg/dL Total Bilirubin (0.1-1.5) mg/dL AST (12-35) U/L ALT (4-35) U/L Alkaline Phosphatase (40-150) U/L Troponin I (0.01-0.04) ng/mL Total Protein (6.0-8.3) g/dL Albumin (3.3-5.0) g/dL Lipase (23-300) U/L Urine Color (Yellow) Urine Appearance (Clear) Urine pH (5.0-8.5) Ur Specific Butler (1.000-1.030) Urine Protein (Negative) Urine Glucose (UA) (Negative) Urine Ketones (Negative) Urine Blood (Negative) Urine Nitrite (Negative) Urine Bilirubin (Negative) Urine Urobilinogen (0.2-1.0) Ur Leukocyte Esterase (Negative) Urine RBC (0-2) Urine WBC (0-5) Ur Squamous Epith Cells (None-Few) Urine Bacteria (None) SARS-CoV-2 (PCR) Negative SARS-CoV-2 (Negative) Influenza Type A (PCR) Negative PCR FLU A (Negative) Influenza Type B (PCR) Negative PCR FLU B (Negative) RSV (PCR) Negative PCR RSV (Negative) POC Glucose (60-115) mg/dl POC Creatinine 2.3 H (0.6-1.3) mg/dl ECG Data Attestation: I personally reviewed and interpreted this ECG as follows: Interpretation: Normal sinus rhythm Rate 84 FL interval 152 Normal QRS axis. Low voltage QRS Nonspecific T-wave flattening but no ST segment elevation or depression QTC 270, QTC 319 No old EKGs available for comparison Discharge Plan Discharge Clinical Impression: Acute pyelonephritis, Acute hyperglycemia, Acute hyponatremia, Acute dehydration Patient Disposition: Admitted As Inpatient Procedures ABG Interpretation ABG Results: 01/10/25 13:50 VBG pH 7.401 VBG pCO2 33 L VBG pO2 45.1 VBG HCO3 21
[2025-01-10 14:05] LABS: Hematocrit* 30.7 % (33.0-51.0); Hemoglobin* 10.3 gm/dL (12.0-16.0); Immature Granulocytes Pct Auto 0.4 %; Mean Corpuscular HGB Conc 34 gm/dL (32-36); Mean Corpuscular Hemoglobin 29 pg (26-34); Mean Corpuscular Volume 87 fL (80-100); RDW Coefficient of Variation % 14.1 % (11.5-15.5); Red Blood Count* 3.55 m/uL (4.00-5.20); White Blood Count* 12.70 K/uL (4.50-11.00)
[2025-01-10 14:07] LABS: HCO3 VBG 21 mmol/L (21-28); Lactate* 1.5 mmol/L (0.5-1.9); PCO2 VBG 33 mmHG (40-50); PO2 VBG 45.1 mmHG (25-47); pH VBG 7.401 (7.32-7.43)
[2025-01-10 14:12] LABS: Appearance Urine Cloudy (Clear)
[2025-01-10 14:14] LABS: Immature Granulocytes Abs Auto 0.10 K/uL (0.00-0.30); Lymphocytes Absolute Auto 0.50 K/uL (0.90-2.90); Slide Review Reflex No
--- NOTE | 2025-01-10 14:19 | CRLHL7_ITS ---
For Patients: As a result of the Century Cures Act, medical imaging exams and procedure reports are released immediately into your electronic medical record. You may view this report before your referring provider. If you have questions, please contact your health care provider. Indication: VOMITING, ABDOMINAL PAIN, DIABETIC COMPLICATIONS Technique: Noncontrast CT abdomen and pelvis Please note that all CT scans at this facility use dose modulation, iterative reconstruction, and/or weight-based dosing when appropriate to reduce radiation dose to as low as reasonably achievable. Comparison: 03/26/2021 Findings: Mild scarring within the left lower lobe. No pleural effusion. The liver is unremarkable. Small stone in the gallbladder. No biliary obstruction. The spleen is unremarkable. Normal pancreas. Thickening of the left adrenal gland. Normal right adrenal gland. Mild ectopia of the left kidney is unchanged. No left-sided hydronephrosis. Ectopic position of the right kidney. The right kidney has enlarged compared to the prior study and there are no inflammatory changes about the right kidney with curvilinear densities. No evidence of a renal stone. The bladder is normal. No bladder stone. Sigmoid diverticulosis. No diverticulitis. Diverticulosis is present elsewhere throughout the colon. Normal appendix. No bowel obstruction. No drainable fluid collection. AVN of the left femoral head without collapse. Degenerative disc disease L5-S1. 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 The right ureter is also distended although no radiopaque stone is noted. Please note that all CT scans at this facility use dose modulation, iterative reconstruction, and/or weight-based dosing when appropriate to reduce radiation dose to as low as reasonably achievable. Dictated by Camilo Suggs MD @ 01/10/2025 3:23:49 PM (Electronically Signed)
[2025-01-10 14:21] LABS: Creatinine, Point-of-Care* 2.3 mg/dl (0.6-1.3)
[2025-01-10 14:25] LABS: Albumin* 3.3 g/dL (3.3-5.0); Chloride* 92 mmol/L (96-114)
[2025-01-10 14:26] LABS: Potassium* 4.6 mmol/L (3.6-5.1)
[2025-01-10 14:28] LABS: Alanine Aminotransferase* 17 U/L (4-35); Alkaline Phosphatase* 99 U/L (40-150); Anion Gap 11 mEq/L (7-15); Aspartate Amino Transferase* 17 U/L (12-35); Bilirubin Total* 0.6 mg/dL (0.1-1.5); Blood Urea Nitrogen* 46 mg/dL (7-30); Calcium* 9.8 mg/dL (8.4-10.6); Carbon Dioxide* 20 mmol/L (20-32); Creatinine* 2.0 mg/dL (0.5-1.5); Est. Creatinine Clearance* 18.63; Estimated Glomerular Filt Rate 25 ml/min; Total Protein* 6.2 g/dL (6.0-8.3)
[2025-01-10] MEDS: ONDANSETRON 2 MG/ML inj 4 MG IVP (14:41)
[2025-01-10 14:42] LABS: Glucose* 475 mg/dL (60-115); Sodium* 123 mmol/L (135-149)
[2025-01-10 15:11] LABS: PCR FLU A Negative PCR FLU A (Negative); PCR FLU B Negative PCR FLU B (Negative); PCR RSV Negative PCR RSV (Negative); SARS PCR* Negative SARS-CoV-2 (Negative)
[2025-01-10] MEDS: cefTRIAXone 1 GM in 0.9 % SODIUM CHLORIDE Mini-bag 100 ML IVPB (15:47)
[2025-01-10] MEDS: INSULIN REGULAR, HUMAN 100 UNIT/ML VIAL 10 UNIT SUBCUT (16:06)
--- NOTE | 2025-01-10 16:48 | PM.IMHP1 ---
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 Afebrile. Leukocytosis with left shift noted. Lactate 1.5 -continue ceftriaxone as initiated in ED awaiting culture results -pain and nausea management as needed -renal ultrasound ordered Status: Acute (2) Acute hyperglycemia: Problem comment: -glucose > 500 in ED. Suspected in acute illness, nausea/vomiting -received 10 units subQ insulin and 2 L NS IVF in ED, recheck insulin > 300 -continue IVF and insulin based on sliding scale Status: Acute (3) Acute hyponatremia: Problem comment: -sodium 123. Suspected in acute illness, nausea/vomiting, decreased oral intake -received 2 L NS IVF in ED, recheck sodium this evening -fluid restriction of free water Status: Acute (4) Acute dehydration: Problem comment: -in setting of decreased oral intake, nausea/vomiting -BUN 46, most recently 24 -monitor following fluid hydration Status: Acute (5) Diabetes mellitus type 2, insulin dependent: Problem comment: -most recent hemoglobin A1c 8.0, 6.9 one year ago. Tells me her PCP says 8 is reasonable for her -discontinued insulin use 2 weeks ago and increased Ozempic dose (has been on this for 2 years with 80 lb weight loss) -history of frequent hypoglycemic crashes in the early mornings while on insulin -glucose checks ACHS with sliding scale during hospitalization Status: Acute (6) GERD (gastroesophageal reflux disease): Problem comment: -continue PPI Status: Acute (7) Depression: Problem comment: -continue mirtazapine Status: Acute (8) Acute on chronic systolic (congestive) heart failure: Problem comment: TTE 04/18/24: 1. Normal LV size and wall thickness, calculated EF 42%. 2. 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 3. Normal RV size and function. 4. The aortic valve is sclerotic and trileaflet, no stenosis and no regurgitation. 5. Echo contrast was administered to enhance visualization of all LV segments. -Followed by [facility], last visit 12/11/2024 -hold furosemide for now with mild bump in creatinine, monitor for fluid overload, restart when appropriate Status: Acute (9) Mixed hyperlipidemia: Problem comment: -continue statin Status: Acute (10) CKD (chronic kidney disease): Problem comment: -CKD stage IIIB -baseline creatinine 1.5-1.88 -current creatinine 2.0, continue to monitor -hold spironolactone and furosemide, resuming when appropriate Status: Acute (11) YAMILETH (obstructive sleep apnea): Problem comment: -has not used CPAP for quite some time. PCP has encouraged new sleep study Status: Acute (12) Hypertension: Problem comment: -continue losartan, metoprolol Status: Acute (13) Rash: Problem comment: -nonpruritic, flat red rash, present in setting of acute illness. Patient reports that it is already improving. Some evidence of dermographism on exam. Monitor Status: Acute Total Time Spent Total Time Spent: Today I spent 75 minutes seeing the patient, reviewing Expanse and EPIC notes/diagnostics, discussing the care plan with our care time that includes social work, PT/OT, pharmacy, RT, alf and documenting my impressions and plan in the medical record. Hospitalist- H&P: HPI History of Present Illness Date Seen: 01/10/25 Chief complaint: Diabetic complications Narrative: Hina Rogers is a 79 year old female from [facility] past medical history significant for type 2 diabetes mellitus with neuropathy, previously insulin dependent, hypertension, hyperlipidemia, CKD stage IIIB, CAD, ASCVD, history of SC, history of pacemaker/ICD placement, chronic stable angina, ischemic cardiomyopathy, systolic HFrEF, YAMILETH, gout, GERD, depression, chronic back pain, fibromyalgia is admitted to the medical floor from the ED for further management suspected pyelonephritis. Patient is seen with records administrator at bedside. 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 Began vomiting shortly thereafter. Complains of right flank pain. Last BM was this morning. Normal for her, No blood, not black. [place] feverish at home. No headaches or dizziness. No chest pain or shortness of breath. No recent cough or cold symptoms. Reports that her Dexcom was reading extremely high. Feeling better now after receiving IVF and antiemetics, pain medication. No longer nauseous. PCP is Dr. Gutierrez. Not a current smoker, having quit greater than 50 years ago. Drinks once a year. DNR/DNI. Review of Systems Narrative: REVIEW OF SYSTEMS: Complete review of systems performed and negative unless otherwise stated in HPI or below. Medical Decision Making Medical Decision Making Has patient completed a Health Care Directive: No PFSH PFS Medical History Myocardial infarct ?I21.9 - Acute myocardial infarction, unspecified (ICD-10) Hypertension ?I10 - Essential (primary) hypertension (ICD-10) Peripheral neuropathy ?G62.9 - Polyneuropathy, unspecified (ICD-10) YAMILETH (obstructive sleep apnea) ?G47.33 - Obstructive sleep apnea (adult) (pediatric) (ICD-10) Fibromyalgia ?M79.7 - Fibromyalgia (ICD-10) CKD (chronic kidney disease) ?N18.9 - Chronic kidney disease, unspecified (ICD-10) COPD (chronic obstructive pulmonary disease) ?J44.9 - Chronic obstructive pulmonary disease, unspecified (ICD-10) Chronic back pain ?M54.9 - Dorsalgia, unspecified (ICD-10) ?G89.29 - Other chronic pain (ICD-10) CAD (coronary artery disease) ?I25.10 - Atherosclerotic heart disease of [place] coronary artery without angina pectoris (ICD-10) Mixed hyperlipidemia ?E78.2 - Mixed hyperlipidemia (ICD-10) Idiopathic gout ?M10.00 - Idiopathic gout, unspecified site (ICD-10) Acute on chronic systolic (congestive) heart failure ?I50.23 - Acute on chronic systolic (congestive) heart failure (ICD-10) Depression ?F32.A - Depression, unspecified (ICD-10) GERD (gastroesophageal reflux disease) ?K21.9 - Gastro-esophageal reflux disease without esophagitis (ICD-10) Diabetes mellitus type 2, insulin dependent ?E11.9 - Type 2 diabetes mellitus without complications (ICD-10) ?Z79.4 - USP (current) use of insulin (ICD-10) Social History Smoking Status: Never smoker Meds Home Medications and Allergies Home Medications ?Medication ?Instructions ?Recorded ?Confirmed ?Type albuterol sulfate 90 mcg/actuation 2 puff inhalation Q4-6H PRN 08/31/22 01/10/25 History aerosol inhaler gabapentin 600 mg tablet 900 mg PO TID 08/31/22 01/10/25 History allopurinol 100 mg tablet 100 mg PO DAILY 01/10/25 01/10/25 History aspirin 81 mg tablet,delayed 81 mg PO DAILY 01/10/25 01/10/25 History release atorvastatin 40 mg tablet 40 mg PO QPM 01/10/25 01/10/25 History cetirizine 10 mg tablet 10 mg PO DAILY 01/10/25 01/10/25 History dapagliflozin propanediol 10 mg 10 mg PO DAILY 01/10/25 01/10/25 History tablet (Farxiga) epinephrine 0.3 mg/0.3 mL 0.3 mg IM ONCE PRN 01/10/25 01/10/25 History injection, auto-injector furosemide 40 mg tablet 60 mg PO .prn 01/10/25 01/10/25 History insulin aspart U-100 100 unit/mL 10 unit subcut DAILY 01/10/25 01/10/25 History (3 mL) subcutaneous pen (Novolog FlexPen U-100 Insulin aspart) insulin glargine 100 unit/mL (3 16 unit subcut HS 01/10/25 01/10/25 History mL) subcutaneous pen (Lantus Solostar U-100 Insulin) isosorbide mononitrate 30 mg 15 mg PO DAILY 01/10/25 01/10/25 History tablet,extended release 24 hr losartan 25 mg tablet 12.5 mg PO DAILY 01/10/25 01/10/25 History meclizine 25 mg tablet 25 mg PO TID PRN 01/10/25 01/10/25 History mecobalamin-levomefolate 1 tab PO BID 01/10/25 01/10/25 History calcium-pyridoxal phos 2 mg-3 mg-35 mg tablet (Foltanx) metoprolol succinate 25 mg 25 mg PO DAILY 01/10/25 01/10/25 History tablet,extended release 24 hr mirtazapine 30 mg tablet 45 mg PO HS 01/10/25 01/10/25 History nitroglycerin 0.4 mg sublingual 0.4 mg sublingual Q5M PRN 01/10/25 01/10/25 History tablet omeprazole 20 mg tablet,delayed 20 mg PO BID 01/10/25 01/10/25 History release semaglutide 2 mg/dose (8 mg/3 mL) 2 mg subcut .once weekly 01/10/25 01/10/25 History subcutaneous pen injector (Ozempic) spironolactone 25 mg tablet 12.5 mg PO DAILY 01/10/25 01/10/25 History tramadol 50 mg tablet 50 - 100 mg PO HS PRN pain 01/10/25 01/10/25 History Allergies Allergy/AdvReac Type Severity Reaction Status Date / Time latex Allergy Unknown Verified 01/10/25 13:22 morphine Allergy Unknown Verified 01/10/25 13:22 Exam Narrative: Exam Narrative: PHYSICAL EXAM General: Pleasant, conversant, NAD HEENT: Normocephalic, atraumatic, sclera white, EOMI Cardiovascular: RRR, S1S2. No pitting edema Pulmonary: CTA bilaterally without rhonchi, rales, expiratory wheezes. No dyspnea Abdominal: Soft, nondistended, mild diffuse tenderness, no guarding, right CVA tenderness Neurological: Alert, answering questions appropriately, cranial nerves intact, no focal findings Extremities: No gross joint deformity or swelling. AROMI. Neurovascularly intact Skin: Warm, dry. Spotty, flat erythematous rash randomly over bilateral upper extremities, back, abdomen Const: Vital Signs, click to edit/add: Vital Signs - 24 hr 01/10/25 13:22 01/10/25 14:12 01/10/25 14:19 Temperature 98.8 F Pulse Rate 83 84 Pulse Rate [Pulse Oximeter] 87 Respiratory Rate 16 Blood Pressure Blood Pressure [Ri ght Upper Arm] 130/75 Pulse Oximetry 98 97 98 Oxygen Delivery Me thod Room Air 01/10/25 14:34 01/10/25 14:38 01/10/25 14:45 Temperature Pulse Rate 84 83 83 Pulse Rate [Pulse Oximeter] Respiratory Rate 16 17 Blood Pressure 120/65 Blood Pressure [Ri ght Upper Arm] Pulse Oximetry 97 97 96 Oxygen Delivery Me thod 01/10/25 15:00 01/10/25 15:15 01/10/25 15:30 Temperature Pulse Rate 83 83 83 Pulse Rate [Pulse Oximeter] Respiratory Rate 16 18 19 Blood Pressure Blood Pressure [Ri ght Upper Arm] Pulse Oximetry 96 95 96 Oxygen Delivery Me thod 01/10/25 15:45 01/10/25 15:48 01/10/25 15:49 Temperature Pulse Rate 86 86 83 Pulse Rate [Pulse Oximeter] Respiratory Rate 17 17 17 Blood Pressure 120/72 Blood Pressure [Ri ght Upper Arm] Pulse Oximetry [address] [facility] 01/10/25 16:00 Temperature Pulse Rate 83 Pulse Rate [Pulse Oximeter] Respiratory Rate 21 Blood Pressure Blood Pressure [Ri ght Upper Arm] Pulse Oximetry [address] [facility] Hospitalist - H&P: Result Labs Labs: Short CBC 01/10/25 Range/Units 13:50 WBC 12.70 H (4.50-11.00) K/uL Hgb 10.3 L (12.0-16.0) gm/dL Hct 30.7 L (33.0-51.0) % Plt Count 166 (140-440) K/uL BMP 01/10/25 13:50 Sodium 123 L* Potassium 4.6 Chloride 92 L Carbon Dioxide 20 BUN 46 H Creatinine 2.0 H Glucose 475 H* Calcium 9.8 Cardiac Enzymes 01/10/25 Range/Units 13:50 Troponin I < 0.01 (0.01-0.04) ng/mL Liver Function 01/10/25 Range/Units 13:50 Total Bilirubin 0.6 (0.1-1.5) mg/dL AST 17 (12-35) U/L ALT 17 (4-35) U/L Alkaline Phosphatase 99 (40-150) U/L Albumin 3.3 (3.3-5.0) g/dL Urine 01/10/25 Range/Units 13:51 Urine Color Yellow (Yellow) Urine Appearance Cloudy A (Clear) Urine pH 6.0 (5.0-8.5) Ur Specific [place] <= 1.005 (1.000-1.030) Urine Protein 2+ A (Negative) Urine Glucose (UA) 2+ A (Negative) ECG Attestation: I personally reviewed and interpreted this ECG as follows: Interpretation: NSR, ventricular rate 84, QTC [address] scan - abdomen: Radiologist's impression: Mild scarring within the left lower lobe. No pleural effusion. The liver is unremarkable. Small stone in the gallbladder. No biliary obstruction. The spleen is unremarkable. Normal pancreas. Thickening of the left adrenal gland. Normal right adrenal gland. Mild ectopia of the left kidney is unchanged. No left-sided hydronephrosis. Ectopic position of the right kidney. The right kidney has enlarged compared to the prior study and there are no inflammatory changes about the right kidney with curvilinear densities. No evidence of a renal stone. The bladder is normal. No bladder stone. Sigmoid diverticulosis. No diverticulitis. Diverticulosis is present elsewhere throughout the colon. Normal appendix. No bowel obstruction. No drainable fluid collection. AVN of the left femoral head without collapse. Degenerative disc disease L5-S1. 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 The right ureter is also distended although no radiopaque stone is noted.
--- NOTE | 2025-01-10 17:02 | CRLHL7_ITS ---
For Patients: As a result of the Century Cures Act, medical imaging exams and procedure reports are released immediately into your electronic medical record. You may view this report before your referring provider. If you have questions, please contact your health care provider. Indication: Pain, question right pyelonephritis, right ureteral distension Technique: Sonographic evaluation of the kidneys and bladder Comparison: CT abdomen pelvis performed same day Findings: Right: 10.9 x 4.9 x 4.4 centimeters. Suboptimal examination due to location. Ectopic kidney again demonstrated. Slight dilation of the renal pelvis and proximal ureter noted, though appears decompressed on postvoid imaging. No calculi. Left: 7.1 x 4.3 x 6.3 centimeters. No hydronephrosis. No calculi. Bladder: Unremarkable. Near-complete emptying postvoid. Impression: Suboptimal examination due to location of ectopic right kidney. There appears to be a dilated renal pelvis and ureter, though this appears decompressed on postvoid imaging and may be transient or physiologic. Dictated by Antwon Avalos MD @ 01/10/2025 6:24:47 PM (Electronically Signed)
[2025-01-10] MEDS: ENOXAPARIN 30 MG/0.3ML INJ SUBCUT (18:20)
[2025-01-10] MEDS: INSULIN ASPART 100 UNIT/ML SUBCUT ×2 (18:21→20:14)
[2025-01-10] MEDS: ATORVASTATIN CALCIUM 40 MG TABLET PO (18:21)
--- NOTE | 2025-01-10 18:39 | PC.NURSE ---
End of Shift: Patient pleasant and cooperative, alert and oriented. Patient vitally stable, lungs clear, BS WNL, IV running NS at 125. Patient rates abdominal pain/cramping at most 7/10. Patient has not requested pain meds, nor have any been given. Patient urinated once 400 ml by commode. Patient is SBA, patient reports weakness, but is completely able to walk well. Patient ambulates independently with no walker at home. Blood sugar was 301, patient declined any food, 3 units novolog given.
[2025-01-10 19:32] LABS: Sodium* 126 mmol/L (135-149)
[2025-01-10] MEDS: GABAPENTIN 600 MG TABLET 900 MG PO (20:11)
[2025-01-10] MEDS: TRAMADOL HCL 50 MG TABLET PO (20:11)
[2025-01-10] MEDS: MIRTAZAPINE 15 MG TABLET 45 MG PO (20:13)
[2025-01-10] MEDS: OMEPRAZOLE 20 MG CAPSULE DR PO (20:13)
[2025-01-11 02:58] VITALS: BP 105/61; PULSE 81; RESP 16; TEMP 37.5; O2SAT 96
--- NOTE | 2025-01-11 04:22 | PC.NURSE ---
Shift note: Pt is alert and oriented. Ambulated with SBA to BR. Low grade temperature of 99.5 recorded. Other V/S stable. 1500 fluid restriction maintained. Pain has been moderate. Pt rated the highest pain at 2100 as 8/10. At that time, pt requested for Tramadol. %0mg was given and was effective. Pt had adequate sleep.
[2025-01-11 06:45] LABS: HCO3 VBG 20 mmol/L (21-28); PCO2 VBG 39 mmHG (40-50); PO2 VBG 33.2 mmHG (25-47); pH VBG 7.320 (7.32-7.43)
[2025-01-11 06:47] LABS: Hematocrit* 25.2 % (33.0-51.0); Hemoglobin* 8.2 gm/dL (12.0-16.0); Mean Corpuscular HGB Conc 33 gm/dL (32-36); Mean Corpuscular Hemoglobin 29 pg (26-34); Mean Corpuscular Volume 89 fL (80-100); Red Blood Count* 2.83 m/uL (4.00-5.20); White Blood Count* 8.28 K/uL (4.50-11.00)
[2025-01-11 06:49] LABS: Slide Review Reflex No
[2025-01-11 06:59] LABS: Chloride* 104 mmol/L (96-114); Potassium* 4.0 mmol/L (3.6-5.1); Sodium* 128 mmol/L (135-149)
[2025-01-11 07:00] VITALS: BP 111/63; PULSE 75; RESP 16; TEMP 36.6; O2SAT 99
[2025-01-11 07:02] LABS: Blood Urea Nitrogen* 35 mg/dL (7-30); Creatinine* 1.8 mg/dL (0.5-1.5); Est. Creatinine Clearance* 20.70; Estimated Glomerular Filt Rate 29 ml/min
[2025-01-11 07:03] LABS: Anion Gap 3 mEq/L (7-15); Calcium* 8.8 mg/dL (8.4-10.6); Carbon Dioxide* 21 mmol/L (20-32); Glucose* 189 mg/dL (60-115)
--- NOTE | 2025-01-11 07:39 | PM.IMPN1 ---
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 Afebrile. Leukocytosis with left shift noted. Lactate 1.5 -renal ultrasound as above - 01/11 UC, BC x 2 growing out G neg rods, symptoms improving, leukocytosis resolved, continue ceftriaxone as initiated in ED awaiting culture results, continue pain and nausea management as needed Status: Acute (2) Bacteremia due to Gram-negative bacteria: Problem comment: - both BC from yesterday growing out G- rods. - Continue ceftriaxone, await culture and sensitivity results Status: Acute (3) Ectopic kidney: Problem comment: right, congenital Status: Chronic (4) Acute hyponatremia: Problem comment: -sodium 123. Suspected in acute illness, nausea/vomiting, decreased oral intake -received 2 L NS IVF in ED, recheck sodium this evening -fluid restriction of free water - 01/11 Na up to 128 today from 123 last night. This is already within goal increase for 24 hour period. Slow trajectory to prevent ODS. Stop FR and switch IVF from NS to LR (I think she still needs the IVF for rehydration for now). Check Na around 1pm. Status: Acute (5) Acute dehydration: Problem comment: -in setting of decreased oral intake, nausea/vomiting -BUN 46, most recently 24 -monitor following fluid hydration - 01/11 stopping FR as above. BUN and Cr improving. Still appears slightly volume depleted. Changing to LR from NS for ongoing hydration, as above. Will consider stopping IVF after sodium check at 1 pm. Status: Acute (6) CKD (chronic kidney disease): Problem comment: -CKD stage IIIB -baseline creatinine 1.5-1.88 -GARTH on CKD, admission creatinine 2.0, continue to monitor - 01/11 Cr improved to baseline, now 1.8. BUN still mildly elevated and appears to be volume depleted yet. Continue IVF for now, will probably stop them after Na check at 1 pm. Continue to hold spironolactone and furosemide, resuming when appropriate Status: Chronic (7) Acute hyperglycemia: Problem comment: -glucose > 500 in ED. Suspected in acute illness, nausea/vomiting -received 10 units subQ insulin and 2 L NS IVF in ED, recheck insulin > 300 - 01/11 glucoses now within goal, 160-170. Restart home doses of lantus and dapagliflozin. Continue ISS. Monitor POC glucoses. She will calibrate and/or switch out her dexcom. Status: Acute (8) Diabetes mellitus type 2, insulin dependent: Problem comment: -hyperglycemia, question compliance to regimen -most recent hemoglobin A1c 8.0, 6.9 one year ago. Tells me her PCP says 8 is reasonable for her -discontinued insulin use 2 weeks ago and increased Ozempic dose (has been on this for 2 years with 80 lb weight loss) -history of frequent hypoglycemic crashes in the early mornings while on insulin - treat as above Status: Chronic (9) Rash: Problem comment: -nonpruritic, flat red rash, present in setting of acute illness. Patient reports that it is already improving. Some evidence of dermographism on exam. Monitor Status: Acute (10) Systolic and diastolic CHF, chronic: Problem comment: - Chronic. She is volume depleted. I do not see evidence of acute exacerbation. -Followed by [facility], last visit 12/11/2024 TTE 04/18/24: 1. Normal LV size and wall thickness, calculated EF 42%. 2. 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 3. Normal RV size and function. 4. The aortic valve is sclerotic and trileaflet, no stenosis and no regurgitation. 5. Echo contrast was administered to enhance visualization of all LV segments. -01/10 hold furosemide for now with mild bump in creatinine, monitor for fluid overload, restart when appropriate - 01/11 appears still volume depleted today. Cr improved, BUN still elevated. Continue IVF for now, probably stopping these at 1pm after next Na check. Monitor closely for pulm edema and fluid overload. Status: Acute (11) GERD (gastroesophageal reflux disease): Problem comment: -continue PPI Status: Chronic (12) Depression: Problem comment: -continue mirtazapine Status: Chronic (13) YAMILETH (obstructive sleep apnea): Problem comment: -has not used CPAP for quite some time. PCP has encouraged new sleep study Status: Chronic (14) Hypertension: Problem comment: -continue losartan, metoprolol Status: Chronic (15) Mixed hyperlipidemia: Problem comment: -continue statin Status: Chronic Total Time Spent Total Time Spent: Today I spent 50 minutes seeing the patient, reviewing Expanse and EPIC notes/diagnostics/labs, discussing the care plan with our care team that includes social work, PT/OT, pharmacy, RT, group home and documenting my impressions and plan in the medical record. Subjective Time Seen by Provider: 07:55 Date Seen: 01/11/25 Interval history: Hina says she is feeling better, but still tired this morning and wants to get some more sleep before getting up for the day. The pain in her right abd/flank has also improved. She endorses feeling a bit sweaty this morning, like she is getting another fever. Exam Narrative: Exam Narrative: General: No acute distress. Awake, alert, oriented x3. No pallor. No jaundice. Oropharynx: Clear. Mucous membranes slightly dry. Cardiovascular: Regular rate and rhythm. No murmurs, gallops, or rubs. Respiratory: Clear to auscultation bilaterally. No wheezes or crackles. Abdomen: Bowel sounds present. Soft, nondistended, mildly tender in right abdomen, no rebound tenderness or guarding. Extremities: No lower extremity edema. Skin: rash noted on UEs, back, abdomen. Const: Vital Signs, click to edit/add: Vital Signs - 24 hr 01/10/25 13:22 01/10/25 14:12 01/10/25 14:19 Temperature 98.8 F Pulse Rate 83 84 Pulse Rate [Pulse Oximeter] 87 Respiratory Rate 16 Blood Pressure Blood Pressure [Le ft Arm] Blood Pressure [Ri ght Upper Arm] 130/75 Pulse Oximetry 98 97 98 Oxygen Delivery Me thod Room Air 01/10/25 14:34 01/10/25 14:38 01/10/25 14:45 Temperature Pulse Rate 84 83 83 Pulse Rate [Pulse Oximeter] Respiratory Rate 16 17 Blood Pressure 120/65 Blood Pressure [Le ft Arm] Blood Pressure [Ri ght Upper Arm] Pulse Oximetry 97 97 96 Oxygen Delivery Me thod 01/10/25 15:00 01/10/25 15:15 01/10/25 15:30 Temperature Pulse Rate 83 83 83 Pulse Rate [Pulse Oximeter] Respiratory Rate 16 18 19 Blood Pressure Blood Pressure [Le ft Arm] Blood Pressure [Ri ght Upper Arm] Pulse Oximetry 96 95 96 Oxygen Delivery Me thod 01/10/25 15:45 01/10/25 15:48 01/10/25 15:49 Temperature Pulse Rate 86 86 83 Pulse Rate [Pulse Oximeter] Respiratory Rate 17 17 17 Blood Pressure 120/72 Blood Pressure [Le ft Arm] Blood Pressure [Ri ght Upper Arm] Pulse Oximetry 100 99 99 Oxygen Delivery Me thod 01/10/25 16:00 01/10/25 17:15 01/10/25 18:35 Temperature 98.9 F Pulse Rate 83 Pulse Rate [Pulse Oximeter] 83 Respiratory Rate 21 16 16 Blood Pressure Blood Pressure [Le ft Arm] 133/74 Blood Pressure [Ri ght Upper Arm] Pulse Oximetry 99 100 100 Oxygen Delivery Me thod Room Air Room Air 01/10/25 19:00 01/10/25 22:24 01/10/25 22:24 Temperature 99.5 F 99.2 F Pulse Rate Pulse Rate [Pulse Oximeter] 86 88 88 Respiratory Rate 16 16 16 Blood Pressure Blood Pressure [Le ft Arm] 118/66 115/57 L Blood Pressure [Ri ght Upper Arm] Pulse Oximetry 98 95 Oxygen Delivery Me thod Room Air Room Air 01/11/25 02:58 Temperature 99.5 F Pulse Rate Pulse Rate [Pulse Oximeter] 81 Respiratory Rate 16 Blood Pressure Blood Pressure [Le ft Arm] 105/61 Blood Pressure [Ri ght Upper Arm] Pulse Oximetry 96 Oxygen Delivery Me thod Room Air Labs Labs: Laboratory Results - last 24 hr 01/10/25 01/10/25 01/10/25 13:20 13:50 13:51 WBC 12.70 H RBC 3.55 L Hgb 10.3 L Hct 30.7 L MCV 87 MCH 29 MCHC 34 RDW Coeff of Patricia 14.1 Plt Count 166 Neut % (Auto) 91.9 H Lymph % (Auto) 3.9 L [place] % (Auto) 3.8 Eos % (Auto) 0.0 Baso % (Auto) 0.0 Neut # (Auto) 11.70 H Lymph # (Auto) 0.50 L [place] # (Auto) 0.50 Eos # (Auto) 0.00 Baso # (Auto) 0.00 Abs Immat Gran (auto) 0.10 Imm/Tot Granulo (auto) 0.4 VBG pH 7.401 VBG pCO2 33 L VBG pO2 45.1 VBG HCO3 21 Sodium 123 L* Potassium 4.6 Chloride 92 L Carbon Dioxide 20 Anion Gap 11 BUN 46 H Creatinine 2.0 H Estimated Creat Clear 18.63 Estimated GFR 25 Glucose 475 H* Lactate 1.5 Calcium 9.8 Magnesium 2.0 Total Bilirubin 0.6 AST 17 ALT 17 Alkaline Phosphatase 99 Troponin I < 0.01 C-Reactive Protein Total Protein 6.2 Albumin 3.3 Lipase 79 Urine Color Yellow Urine Appearance Cloudy A Urine pH 6.0 Ur Specific Leivasy <= 1.005 Urine Protein 2+ A Urine Glucose (UA) 2+ A Urine Ketones Negative Urine Blood 3+ A Urine Nitrite Negative Urine Bilirubin Negative Urine Urobilinogen 0.2 Ur Leukocyte Esterase Trace A Urine RBC 2-5 A Urine WBC 2-5 Ur Squamous Epith Cells Few Urine Bacteria Many A SARS-CoV-2 (PCR) Influenza Type A (PCR) Influenza Type B (PCR) RSV (PCR) POC Glucose 504 H* POC Creatinine 01/10/25 01/10/25 01/10/25 14:06 14:18 19:10 WBC RBC Hgb Hct MCV MCH MCHC RDW Coeff of Patricia Plt Count Neut % (Auto) Lymph % (Auto) [place] % (Auto) Eos % (Auto) Baso % (Auto) Neut # (Auto) Lymph # (Auto) [place] # (Auto) Eos # (Auto) Baso # (Auto) Abs Immat Gran (auto) Imm/Tot Granulo (auto) VBG pH VBG pCO2 VBG pO2 VBG HCO3 Sodium 126 L Potassium Chloride Carbon Dioxide Anion Gap BUN Creatinine Estimated Creat Clear Estimated GFR Glucose Lactate Calcium Magnesium Total Bilirubin AST ALT Alkaline Phosphatase Troponin I C-Reactive Protein Total Protein Albumin Lipase Urine Color Urine Appearance Urine pH Ur Specific Leivasy Urine Protein Urine Glucose (UA) Urine Ketones Urine Blood Urine Nitrite Urine Bilirubin Urine Urobilinogen Ur Leukocyte Esterase Urine RBC Urine WBC Ur Squamous Epith Cells Urine Bacteria SARS-CoV-2 (PCR) Negative SARS-CoV-2 Influenza Type A (PCR) Negative PCR FLU A Influenza Type B (PCR) Negative PCR FLU B RSV (PCR) Negative PCR RSV POC Glucose POC Creatinine 2.3 H 01/11/25 06:35 WBC 8.28 RBC 2.83 L Hgb 8.2 L Hct 25.2 L MCV 89 MCH 29 MCHC 33 RDW Coeff of Patricia Plt Count 148 Neut % (Auto) Lymph % (Auto) [place] % (Auto) Eos % (Auto) Baso % (Auto) Neut # (Auto) Lymph # (Auto) [place] # (Auto) Eos # (Auto) Baso # (Auto) Abs Immat Gran (auto) Imm/Tot Granulo (auto) VBG pH 7.320 VBG pCO2 39 L VBG pO2 33.2 VBG HCO3 20 L Sodium 128 L Potassium 4.0 Chloride 104 Carbon Dioxide 21 Anion Gap 3 L BUN 35 H Creatinine 1.8 H Estimated Creat Clear 20.70 Estimated GFR 29 Glucose 189 H Lactate Calcium 8.8 Magnesium Total Bilirubin AST ALT Alkaline Phosphatase Troponin I C-Reactive Protein 20.2 H Total Protein Albumin Lipase Urine Color Urine Appearance Urine pH Ur Specific Leivasy Urine Protein Urine Glucose (UA) Urine Ketones Urine Blood Urine Nitrite Urine Bilirubin Urine Urobilinogen Ur Leukocyte Esterase Urine RBC Urine WBC Ur Squamous Epith Cells Urine Bacteria SARS-CoV-2 (PCR) Influenza Type A (PCR) Influenza Type B (PCR) RSV (PCR) POC Glucose POC Creatinine Ordering Physician: Dolores SMITH Date of Service: 01/10/25 Procedure(s): US renal bladder Accession Number(s): [id number] cc: Dolores SMITH; Que Gutierrez M.D.~ For Patients: As a result of the Century Cures Act, medical imaging exams and procedure reports are released immediately into your electronic medical record. You may view this report before your referring provider. If you have questions, please contact your health care provider. Indication: Pain, question right pyelonephritis, right ureteral distension Technique: Sonographic evaluation of the kidneys and bladder Comparison: CT abdomen pelvis performed same day Findings: Right: 10.9 x 4.9 x 4.4 centimeters. Suboptimal examination due to location. Ectopic kidney again demonstrated. Slight dilation of the renal pelvis and proximal ureter noted, though appears decompressed on postvoid imaging. No calculi. Left: 7.1 x 4.3 x 6.3 centimeters. No hydronephrosis. No calculi. Bladder: Unremarkable. Near-complete emptying postvoid. Impression: Suboptimal examination due to location of ectopic right kidney. There appears to be a dilated renal pelvis and ureter, though this appears decompressed on postvoid imaging and may be transient or physiologic. Dictated by Antwon Avalos MD @ 01/10/2025 6:24:47 PM (Electronically Signed)
--- NOTE | 2025-01-11 10:07 | REH.PT ---
PT: Pt seen briefly with PT order placed to evaluate home living situation, she receives help several times per week for showering, cleaning, cooking and pt does not drive, receives rides. Has home health aide and homemaker come in several times per week. Pt moving SBA with PT today as she needed to use the bathroom. She states she has felt a little weaker since becoming sick. At this time, PT will not machine operator picker patient but it was communicated to the hospitalist and nsg that if the patients mobility status changes, we can see her again for thorough PT evaluation to help with discharge. Pt will be hospitalized for several days per rounds information.
[2025-01-11] MEDS: ISOSORBIDE MONONITRATE ER 30 MG TAB 15 MG PO (10:12)
[2025-01-11] MEDS: METOPROLOL SUCCINATE (XL) 25 MG TAB PO (10:15)
[2025-01-11] MEDS: OMEPRAZOLE 20 MG CAPSULE DR PO ×2 (10:15→21:04)
[2025-01-11] MEDS: GABAPENTIN 600 MG TABLET 900 MG PO ×2 (10:16→21:02)
[2025-01-11] MEDS: CETIRIZINE HCL 10 MG TABLET PO (10:17)
[2025-01-11] MEDS: LACTATED RINGERS 1000 ML 1,000 ML 125 ML IV (10:19)
[2025-01-11 11:00] VITALS: BP 93/55; PULSE 77; RESP 16; TEMP 36.5; O2SAT 97
[2025-01-11] MEDS: INSULIN ASPART 100 UNIT/ML SUBCUT ×3 (12:11→21:07)
[2025-01-11 13:54] LABS: Sodium* 123 mmol/L (135-149)
[2025-01-11 15:00] VITALS: BP 96/60; PULSE 77; PULSE 80; RESP 16; TEMP 36.6; O2SAT 97
[2025-01-11] MEDS: cefTRIAXone 2 GM in 0.9 % SODIUM CHLORIDE 100 ml 100 ML IVPB (16:32)
--- NOTE | 2025-01-11 18:31 | PC.NURSE ---
Patient up to the bathroom with SBA. Continues to receive IV antibiotic. Rates abdominal pain at 2/10 - denies the need for pain medicine.
[2025-01-11 19:00] VITALS: BP 105/67; PULSE 80; RESP 16; TEMP 37.8; O2SAT 97
--- NOTE | 2025-01-11 19:35 | PC.NURSE ---
Incident note: Patient had fever of 100.1 at 1930. Patient refused Tylenol offered by Nurse. Explanation about fever and wy the need for Tylenol was given.
[2025-01-11 20:50] LABS: Sodium* 124 mmol/L (135-149)
[2025-01-11] MEDS: MIRTAZAPINE 15 MG TABLET 45 MG PO (21:03)
[2025-01-11] MEDS: ATORVASTATIN CALCIUM 40 MG TABLET PO (21:04)
[2025-01-11] MEDS: LOSARTAN POTASSIUM 50 MG TABLET 12.5 MG PO (21:04)
[2025-01-11] MEDS: SODIUM CHLORIDE 0.9 % (FLUSH) 10 ML SYRINGE 5 ML IVF (21:06)
[2025-01-11 22:41] VITALS: BP 105/55; PULSE 81; RESP 16; TEMP 37.7; O2SAT 95
[2025-01-12 02:38] VITALS: BP 105/55; PULSE 77; RESP 16; TEMP 37.1; O2SAT 95
--- NOTE | 2025-01-12 05:02 | PC.NURSE ---
Shift note: Patient had low grade fever recorded for 1900 and 2300a
--- NOTE | 2025-01-12 05:08 | PC.NURSE ---
Shift note: Patient had low grade fever recorded for 1900 and 2300 as 100.1 and 99.9 respectively. Pt refused Tylenol when offered. Other vital signs stable. Doing well ambulating with SBA to BR. Patient had adequate sleep.
[2025-01-12 05:54] LABS: Hematocrit* 28.2 % (33.0-51.0); Hemoglobin* 9.4 gm/dL (12.0-16.0); Mean Corpuscular HGB Conc 33 gm/dL (32-36); Mean Corpuscular Hemoglobin 29 pg (26-34); Mean Corpuscular Volume 88 fL (80-100); Red Blood Count* 3.21 m/uL (4.00-5.20); White Blood Count* 8.23 K/uL (4.50-11.00)
[2025-01-12 05:56] LABS: Slide Review Reflex No
[2025-01-12 06:06] LABS: Chloride* 100 mmol/L (96-114); Potassium* 3.8 mmol/L (3.6-5.1); Sodium* 126 mmol/L (135-149)
[2025-01-12 06:10] LABS: Anion Gap 6 mEq/L (7-15); Blood Urea Nitrogen* 35 mg/dL (7-30); Calcium* 8.6 mg/dL (8.4-10.6); Carbon Dioxide* 20 mmol/L (20-32); Creatinine* 1.7 mg/dL (0.5-1.5); Est. Creatinine Clearance* 21.92; Estimated Glomerular Filt Rate 31 ml/min; Glucose* 225 mg/dL (60-115)
[2025-01-12 07:00] VITALS: BP 104/58; PULSE 72; RESP 18; TEMP 36.5; O2SAT 99
[2025-01-12] MEDS: CETIRIZINE HCL 10 MG TABLET PO (09:47)
[2025-01-12] MEDS: OMEPRAZOLE 20 MG CAPSULE DR PO ×2 (09:47→20:38)
[2025-01-12] MEDS: ISOSORBIDE MONONITRATE ER 30 MG TAB 15 MG PO (09:47)
[2025-01-12] MEDS: GABAPENTIN 600 MG TABLET 900 MG PO ×3 (09:48→20:36)
[2025-01-12] MEDS: METOPROLOL SUCCINATE (XL) 25 MG TAB PO (09:48)
[2025-01-12] MEDS: SODIUM CHLORIDE 0.9 % (FLUSH) 10 ML SYRINGE 5 ML IVF ×2 (09:49→20:41)
[2025-01-12 11:00] VITALS: BP 95/52; PULSE 72; RESP 18
[2025-01-12] MEDS: INSULIN ASPART 100 UNIT/ML SUBCUT ×3 (12:29→20:42)
--- NOTE | 2025-01-12 13:46 | PM.IMPN1 ---
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 Afebrile. Leukocytosis with left shift noted. Lactate 1.5 -renal ultrasound as above - 01/11 UC, BC x 2 growing out G neg rods, symptoms improving, leukocytosis resolved, continue ceftriaxone as initiated in ED awaiting culture results, continue pain and nausea management as needed - 01/12 pansensitive Ecoli. Awaiting BC sensitivities, continue ceftriaxone. Status: Acute (2) Bacteremia due to Gram-negative bacteria: Problem comment: - both BC from yesterday growing out G- rods. - Continue ceftriaxone, await culture and sensitivity results Status: Acute (3) Ectopic kidney: Problem comment: right, congenital Status: Chronic (4) Acute hyponatremia: Problem comment: -sodium 123. Suspected in acute illness, nausea/vomiting, decreased oral intake -received 2 L NS IVF in ED, recheck sodium this evening -fluid restriction of free water - 01/11 Na up to 128 today from 123 last night. This is already within goal increase for 24 hour period. Slow trajectory to prevent ODS. Stop FR and switch IVF from NS to LR (I think she still needs the IVF for rehydration for now). Check Na around 1pm. - 01/12 Na had gone down to 123 yesterday afternoon. FR was resumed and IVF stopped. Na 126 this morning. Start Protein nutritional shakes. Consult nutrition. Status: Acute (5) Acute dehydration: Problem comment: -in setting of decreased oral intake, nausea/vomiting -BUN 46, most recently 24 -monitor following fluid hydration - 01/11 stopping FR as above. BUN and Cr improving. Still appears slightly volume depleted. Changing to LR from NS for ongoing hydration, as above. Will consider stopping IVF after sodium check at 1 pm. - 01/12 Improved. BUN still elevated. Cr improved further. She has h/o CHF, so IVF were stopped yesterday. Restart home spironolactone and prn lasix with hold parameters. Status: Acute (6) CKD (chronic kidney disease): Problem comment: -CKD stage IIIB -baseline creatinine 1.5-1.88 -[facility]AR[facility] on CKD, admission creatinine 2.0, continue to monitor - 01/11 Cr improved to baseline, now 1.8. BUN still mildly elevated and appears to be volume depleted yet. Continue IVF for now, will probably stop them after Na check at 1 pm. Continue to hold spironolactone and furosemide, resuming when appropriate - 01/12 Back to baseline, Cr 1.7, resume diuretics as above Status: Chronic (7) Acute hyperglycemia: Problem comment: -glucose > 500 in ED. Suspected in acute illness, nausea/vomiting -received 10 units subQ insulin and 2 L NS IVF in ED, recheck insulin > 300 - 01/11 glucoses now within goal, 160-170. Restart home doses of lantus and dapagliflozin. Continue ISS. Monitor POC glucoses. She will calibrate and/or switch out her dexcom. - 01/12 hyperglycemic, not as high as admission. Nutrition consult. Continue lantus, dapagliflozin (have someone bring this from home), ISS Status: Acute (8) Diabetes mellitus type 2, insulin dependent: Problem comment: -hyperglycemia, question compliance to regimen -most recent hemoglobin A1c 8.0, 6.9 one year ago. Tells me her PCP says 8 is reasonable for her -discontinued insulin use 2 weeks ago and increased Ozempic dose (has been on this for 2 years with 80 lb weight loss) -history of frequent hypoglycemic crashes in the early mornings while on insulin - treat as above Status: Chronic (9) Rash: Problem comment: -nonpruritic, flat red rash, present in setting of acute illness. Patient reports that it is already improving. Some evidence of dermographism on exam. Monitor Status: Acute (10) Systolic and diastolic CHF, chronic: Problem comment: - Chronic. She is volume depleted. I do not see evidence of acute exacerbation. -Followed by [facility], last visit 12/11/2024 TTE 04/18/24: 1. Normal LV size and wall thickness, calculated EF 42%. 2. 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 3. Normal RV size and function. 4. The aortic valve is sclerotic and trileaflet, no stenosis and no regurgitation. 5. Echo contrast was administered to enhance visualization of all LV segments. - 01/10 hold furosemide for now with mild bump in creatinine, monitor for fluid overload, restart when appropriate - 01/11 appears still volume depleted today. Cr improved, BUN still elevated. Continue IVF for now, probably stopping these at 1pm after next Na check. Monitor closely for pulm edema and fluid overload. - 01/12 stable, off IVF, restart diuretics, as above Status: Acute (11) GERD (gastroesophageal reflux disease): Problem comment: -continue PPI Status: Chronic (12) Depression: Problem comment: -continue mirtazapine Status: Chronic (13) YAMILETH (obstructive sleep apnea): Problem comment: -has not used CPAP for quite some time. PCP has encouraged new sleep study Status: Chronic (14) Hypertension: Problem comment: -continue losartan, metoprolol, restart spironolactone and prn lasix with hold parameters Status: Chronic (15) Mixed hyperlipidemia: Problem comment: -continue statin Status: Chronic Total Time Spent Total Time Spent: Today I spent 40 minutes seeing the patient, reviewing Expanse and EPIC notes/diagnostics/labs, discussing the care plan with our care team that includes social work, PT/OT, pharmacy, RT, group home and documenting my impressions and plan in the medical record. Subjective Time Seen by Provider: 10:00 Date Seen: 01/12/25 Interval history: Hina tells me she never eats breakfast, and, since the age of 18, has only ever eaten one meal a day with some snacks, never eating before noon or after 8pm because she fears being fat like her family. We discussed how this may be challenging for her body now that she has diabetes and needs protein to prevent frailty and malnutrition. She is agreeable to use Enlive because she likes the taste of those. She denies pain or SOB. Exam Narrative: Exam Narrative: General: No acute distress. Awake, alert, oriented. No pallor. No jaundice. Oropharynx: Clear. Mucous membranes slightly dry. Cardiovascular: Regular rate and rhythm. No murmurs, gallops, or rubs. Respiratory: Clear to auscultation bilaterally. No wheezes or crackles. Abdomen: Bowel sounds present. Soft, nondistended, nontender. Extremities: No lower extremity edema. Skin: rash noted on UEs, back, abdomen, unchanged. Const: Vital Signs, click to edit/add: Vital Signs - 24 hr 01/11/25 15:00 01/11/25 15:00 01/11/25 19:00 Temperature 97.8 F 100.1 F H Pulse Rate [Pulse Oximeter] 77 80 80 Respiratory Rate 16 16 16 Blood Pressure [Le ft Arm] 96/60 105/67 Pulse Oximetry 97 97 Oxygen Delivery Me thod Room Air Room Air 01/11/25 22:41 01/11/25 22:41 01/12/25 02:38 Temperature 99.9 F H 98.8 F Pulse Rate [Pulse Oximeter] 81 81 77 Respiratory Rate 16 16 16 Blood Pressure [Le ft Arm] 105/55 L 105/55 L Pulse Oximetry 95 95 Oxygen Delivery Me thod Room Air Room Air 01/12/25 07:00 01/12/25 11:00 Temperature 97.7 F Pulse Rate [Pulse Oximeter] 72 72 Respiratory Rate 18 18 Blood Pressure [Le ft Arm] 104/58 L 95/52 L Pulse Oximetry 99 Oxygen Delivery Me thod Room Air Labs Labs: Laboratory Results - last 24 hr 01/11/25 01/11/25 01/12/25 13:21 20:00 05:40 WBC 8.23 RBC 3.21 L Hgb 9.4 L Hct 28.2 L MCV 88 MCH 29 MCHC 33 Plt Count 161 Sodium 123 L* 124 L* 126 L Potassium 3.8 Chloride 100 Carbon Dioxide 20 Anion Gap 6 L BUN 35 H Creatinine 1.7 H Estimated Creat Clear 21.92 Estimated GFR 31 Glucose 225 H Calcium 8.6 C-Reactive Protein 15.0 H
--- NOTE | 2025-01-12 14:08 | PC.SOCIAL ---
Addendum entered and electronically signed by Radha Cadena LCSW 01/12/25 14:33: Patient reports that she has a home health aide, Claudia, that comes three times a week to assist patient with showering and hygiene. Patient states she has a homemaker that comes twice a week to assist with errands and clearning the apartment. Patient mentions that she also has someone that checks on her daily. Patient states that she has no concerns or needs from hospice social worker at this time. Original Note: Initial Psychosocial Assessment: 1.??? Assessment completed with: Patient, Spouse, Child, Friend, Other: Patient. 2.??? Pt lives at address and phone number on face sheet? Yes, apartment 3.?Insurance information? on face sheet is correct? Yes 4.?Contacts? on face sheet are correct? Yes 5.??? Does pt have a Healthcare Directive, POLST or Guardian? Did not ask 6.??? Who is the pt?s main source/sources of emotional/physical support? Family and best friend who resides in the same apartment complex 7.??? Prior to admission did pt need assistance? Yes/No Patient has [employer] and Homemaker services. 8.??? Who provided and what was the assistance needed? Unsure of the agency, but is through her Elderly Waiver 9.??? Was Home Health being provided, by what agency? Unusre of what agency, but [employer] and Homemaker services. 10. Does pt use/have medical equipment at home already? What? 11. Will there be a need for additional assistance at discharge and is this available in previous setting? No 12. If pt needs to go to a higher level of care, are they open to this and do they have facilities they are interested in? N/A 13. How would pt plan to transport at discharge? Patient states that she has a car service that she uses that is through her insurance. 14. Is there anyone pt would like hospice social worker to contact to discuss discharge plans? No, unless there are discharge needs. Patient has a case mgr Carleen Forrester [phone]. Other information: SW received call from patient's insurance navigator who states that patient has a case mgr named Carleen Forrester - [phone] if there are any discharge needs.
[2025-01-12 15:19] LABS: Sodium* 128 mmol/L (135-149)
[2025-01-12] MEDS: cefTRIAXone 2 GM in 0.9 % SODIUM CHLORIDE 100 ml 100 ML IVPB (15:35)
[2025-01-12 19:00] VITALS: BP 117/73; PULSE 85; RESP 18; TEMP 36.8; O2SAT 98
[2025-01-12] MEDS: ACETAMINOPHEN 325 MG TABLET 975 MG PO (19:39)
[2025-01-12 20:03] VITALS: PULSE 85; RESP 18
[2025-01-12] MEDS: MIRTAZAPINE 15 MG TABLET 45 MG PO (20:36)
[2025-01-12] MEDS: LOSARTAN POTASSIUM 50 MG TABLET 12.5 MG PO (20:39)
[2025-01-12] MEDS: ATORVASTATIN CALCIUM 40 MG TABLET PO (20:40)
[2025-01-12 22:59] VITALS: BP 94/58; PULSE 77; RESP 18; TEMP 36.8; O2SAT 95
[2025-01-13 03:00] VITALS: BP 118/57; PULSE 73; RESP 20; TEMP 36.4; O2SAT 98
--- NOTE | 2025-01-13 06:25 | PC.NURSE ---
End of shift report [id number]: VSS. Afebrile. Rated abdominal pain from a 7-0/10, prn tylenol offered and given with relief. Pt is on a 1500 fluid restriction. Range Aide educated and reinforced that ambulating to the bathroom would be beneficial for the patient instead of utilizing the bedside commode; patient refused and stated that ?she has accidents when going to the bathroom so needs the commode.? Pt had a premier protein shake this shift. Blood glucose was 412 at 2100, MD Lara notified and insulin given, at recheck pts blood glucose was 325. Pt ambulates ind to the bedside commode. Call light within reach.?
[2025-01-13 06:26] LABS: Hematocrit* 27.0 % (33.0-51.0); Hemoglobin* 9.0 gm/dL (12.0-16.0); Mean Corpuscular HGB Conc 33 gm/dL (32-36); Mean Corpuscular Hemoglobin 29 pg (26-34); Mean Corpuscular Volume 87 fL (80-100); Red Blood Count* 3.11 m/uL (4.00-5.20); White Blood Count* 7.62 K/uL (4.50-11.00)
[2025-01-13 06:38] LABS: Chloride* 106 mmol/L (96-114); Potassium* 3.9 mmol/L (3.6-5.1); Sodium* 130 mmol/L (135-149)
[2025-01-13 06:39] LABS: Slide Review Reflex No
[2025-01-13 06:41] LABS: Anion Gap 5 mEq/L (7-15); Blood Urea Nitrogen* 49 mg/dL (7-30); Calcium* 8.8 mg/dL (8.4-10.6); Carbon Dioxide* 19 mmol/L (20-32); Creatinine* 1.7 mg/dL (0.5-1.5); Est. Creatinine Clearance* 21.92; Estimated Glomerular Filt Rate 31 ml/min; Glucose* 337 mg/dL (60-115)
[2025-01-13 07:45] VITALS: PULSE 78; RESP 18
[2025-01-13 08:00] VITALS: BP 119/51; PULSE 78; RESP 18; TEMP 36.7; O2SAT 99
[2025-01-13] MEDS: METOPROLOL SUCCINATE (XL) 25 MG TAB PO (08:56)
[2025-01-13] MEDS: GABAPENTIN 600 MG TABLET 900 MG PO ×2 (08:57→13:33)
[2025-01-13] MEDS: CETIRIZINE HCL 10 MG TABLET PO (08:57)
[2025-01-13] MEDS: SPIRONOLACTONE 25 MG TABLET 12.5 MG PO (08:57)
[2025-01-13] MEDS: ISOSORBIDE MONONITRATE ER 30 MG TAB 15 MG PO (08:57)
[2025-01-13] MEDS: OMEPRAZOLE 20 MG CAPSULE DR PO (08:57)
[2025-01-13] MEDS: SODIUM CHLORIDE 0.9 % (FLUSH) 10 ML SYRINGE 5 ML IVF (08:58)
--- NOTE | 2025-01-13 10:11 | P.NUTNOTE_ITS ---
Nutrition Progress Note Progress Note Progress Note: HOLAN with MD consult for diabetes. Patient admitted for pyelonephritis and bacteremia. medical history includes Diabetes mellitus type 2, insulin dependent with hypoglycemia crashes in the mornings. Current weight 62.652 kg; height 157.48 cm; BMI 25.3 kg/m2. No weight history in chart, however weight has been stable since admit. Current diet is Diabetic with 1500 mL fluid restriction. No meal intakes recorded since admit. HOLAN visited with patient who declined visit. She reports she sees a tobacco educator through [facility] and she does not need to talk with a dietitian at this time. I asked if I could provide her with some diet education handouts related to diabetes, she declined. No nutrition interventions. Continue to monitor.
--- NOTE | 2025-01-13 10:34 | PC.SOCIAL ---
Addendum entered by LUCERO StricklandSW 01/13/25 16:32: Faxed discharge orders with order for resumption of home care to [facility] home health department for follow up. Original Note: Discharge planning: Met with pt regarding her discharge plan. Pt states she is not sure if she is ready for discharge today. Provided pt with copy of Important Message from Medicare and explained to pt the process and option for her to call for an appeal of her discharge. Pt stated she does not want to appeal her discharge but that she needs a ride home and a shirt to wear Pt requested social worker aide contact her case fitter Carleen Forrester at [phone]. Called Carleen who provided contact phone numbers for transportation services Carleen clarified pt receives Home Health alf (once a week) and home health aid services (3x week) from [facility], and has home health care respiratory therapist services 5 hours a week. caisson worker offered a shirt that can be provided to pt from the hospital to wear home and offered to call her [facility] insurance for prior authorization for a ride home at discharge today. Initially pt requested social worker aide arrange for a ride home only with [facility] or [facility]. [facility] does not belt picker in [place] and [facility] does not have availability for transport today. Informed pt of this. Pt gave permission for social worker aide to call [facility] transportation to arrange for belt picker for discharge home. While social worker aide was on the phone waiting for [facility] Transportation to arrange for belt picker, pt told staff she has arranged for a ride with her family who will bring her a shirt and shoes and being her home from the hospital at 3:00 today. caisson worker to follow up if needed.
[2025-01-13 11:00] VITALS: BP 98/69; PULSE 72; RESP 18; TEMP 36.7; O2SAT 98
--- NOTE | 2025-01-13 11:28 | P.DS_ITS ---
DS: Providers Provider Time Seen by Provider: 09:18 Date Seen: 01/13/25 Date of admission: 01/10/25 17:21 Primary care physician: Que Gutierrez MD Admitting Clinician: Harper Pepper MD Consults: 01/12/25 13:34 Consult to Nutrition [CONS] Routine Comment: Reason for consult:: Diabetic Teaching Attending Physician on discharge: Marina Dexter MD Date of Discharge: 01/13/25 DS: Diagnosis Discharge Diagnosis (1) Acute pyelonephritis: Status: Acute Problem details: -CT shows Interval enlargement of the ectopic right kidney within the mid pelvis with associated moderate perinephric inflammatory changes likely representing pyelonephritis -UA rather unremarkable, UC pending -has had nausea with vomiting, abdominal pain, right flank pain. Afebrile. Leukocytosis with left shift noted. Lactate 1.5 -renal ultrasound as above - 01/11 UC, BC x 2 growing out G neg rods, symptoms improving, leukocytosis resolved, continue ceftriaxone as initiated in ED awaiting culture results, continue pain and nausea management as needed - 01/12 pansensitive Ecoli. Awaiting BC sensitivities, continue ceftriaxone. - 01/13 BC also pansensitive Ecoli, will renally dose oral ciprofloxacin for 7 days to treat E coli pyelonephritis and bacteremia. D/c home, f/u with PCP this week (2) Bacteremia due to Gram-negative bacteria: Status: Acute Problem details: - both BC from yesterday growing out G- rods. 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 Suspected in acute illness, nausea/vomiting, decreased oral intake -received 2 L NS IVF in ED, recheck sodium this evening -fluid restriction of free water - 01/11 Na up to 128 today from 123 last night. This is already within goal increase for 24 hour period. Slow trajectory to prevent ODS. Stop FR and switch IVF from NS to LR (I think she still needs the IVF for rehydration for now). Check Na around 1pm. - 01/12 Na had gone down to 123 yesterday afternoon. FR was resumed and IVF stopped. Na 126 this morning. Start Protein nutritional shakes. Consult nutrition. - 01/13 Na improved to her baseline, 130. Continue daily diabetic protein shake (5) Acute dehydration: Status: Acute Problem details: -in setting of decreased oral intake, nausea/vomiting -BUN 46, most recently 24 -monitor following fluid hydration - 01/11 stopping FR as above. BUN and Cr improving. Still appears slightly volume depleted. Changing to LR from NS for ongoing hydration, as above. Will consider stopping IVF after sodium check at 1 pm. - 01/12 Improved. BUN still elevated. Cr improved further. She has h/o CHF, so IVF were stopped yesterday. Restart home spironolactone and prn lasix with hold parameters. RESOLVED (6) CKD (chronic kidney disease): Status: Chronic Problem details: -CKD stage IIIB -baseline creatinine 1.5-1.88 -GARTH on CKD, admission creatinine 2.0, continue to monitor - 01/11 Cr improved to baseline, now 1.8. BUN still mildly elevated and appears to be volume depleted yet. Continue IVF for now, will probably stop them after Na check at 1 pm. Continue to hold spironolactone and furosemide, resuming when appropriate - 01/12 Back to baseline, Cr 1.7, resume diuretics as above - 01/13 Cr stable at 1.7, renally dose ciprofloxacin (7) Acute hyperglycemia: Status: Acute Problem details: -glucose > 500 in ED. Suspected in acute illness, nausea/vomiting -received 10 units subQ insulin and 2 L NS IVF in ED, recheck insulin > 300 - 01/11 glucoses now within goal, 160-170. Restart home doses of lantus and dapagliflozin. Continue ISS. Monitor POC glucoses. She will calibrate and/or switch out her dexcom. - 01/12 hyperglycemic, not as high as admission. Nutrition consult. Continue lantus, dapagliflozin (have someone bring this from home), ISS (8) Diabetes mellitus type 2, insulin dependent: Status: Chronic Problem details: -hyperglycemia, question compliance to regimen -most recent hemoglobin A1c 8.0, 6.9 one year ago. Tells me her PCP says 8 is reasonable for her -discontinued insulin use 2 weeks ago and increased Ozempic dose (has been on this for 2 years with 80 lb weight loss) -history of frequent hypoglycemic crashes in the early mornings while on insulin - treat as above (9) Rash: Status: Acute Problem details: -nonpruritic, flat red rash, present in setting of acute illness. Patient reports that it is already improving. Some evidence of dermographism on exam. Monitor (10) Systolic and diastolic CHF, chronic: Status: Acute Problem details: - Chronic. She is volume depleted. I do not see evidence of acute exacerbation. -Followed by [facility], last visit 12/11/2024 TTE 04/18/24: 1. Normal LV size and wall thickness, calculated EF 42%. 2. 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 3. Normal RV size and function. 4. The aortic valve is sclerotic and trileaflet, no stenosis and no regurgitation. 5. Echo contrast was administered to enhance visualization of all LV segments. - 01/10 hold furosemide for now with mild bump in creatinine, monitor for fluid overload, restart when appropriate - 01/11 appears still volume depleted today. Cr improved, BUN still elevated. Continue IVF for now, probably stopping these at 1pm after next Na check. Monitor closely for pulm edema and fluid overload. - 01/12 stable, off IVF, restart diuretics, as above - 01/13 stable, lungs clear (11) GERD (gastroesophageal reflux disease): Status: Chronic Problem details: -continue PPI (12) Depression: Status: Chronic Problem details: -continue mirtazapine (13) YAMILETH (obstructive sleep apnea): Status: Chronic Problem details: -has not used CPAP for quite some time. PCP has encouraged new sleep study (14) Hypertension: Status: Chronic Problem details: -continue losartan, metoprolol, restart spironolactone and prn lasix with hold parameters (15) Mixed hyperlipidemia: Status: Chronic Problem details: -continue statin (16) Idiopathic gout: Status: Chronic Problem details: -continue allopurinol DS: Summary Hospital Course Hospital Course: Per H&P: Hina Rogers is a 79 year old female from [facility] past medical history significant for type 2 diabetes mellitus with neuropathy, previously insulin dependent, hypertension, hyperlipidemia, CKD stage IIIB, CAD, ASCVD, history of TX, history of pacemaker/ICD placement, chronic stable angina, ischemic cardiomyopathy, systolic HFrEF, YAMILETH, gout, GERD, depression, chronic b ack pain, fibromyalgia is admitted to the medical floor from the ED for further management suspected pyelonephritis. Patient is seen with production control analyst at bedside. Reports onset of cramping abdominal pain in the medical numerical control operator of . Began vomiting shortly thereafter. Complains of right flank pain. Last BM was this morning. Normal for her, No blood, not black. [place] feverish at home. No headaches or dizziness. No chest pain or shortness of breath. No recent cough or cold symptoms. Reports that her Dexcom was reading extremely high. Feeling better now after receiving IVF and antiemetics, pain medication. No longer nauseous. Hina's was treated with IV ceftriaxone. Her abdominal pain improved daily and was mild and nontender on exam by day of discharge. BC and UC both grew out pansensitive E coli. She has been afebrile for more than 24 hours. Glucoses remained above goal, but patient did not have her dapagliflozin and it was not available on our formulary. She will restart this upon homegoing. I have encouraged her to change her diet to eat 3 small meals daily with snacks, to eat a little more protein and restrict her fluid intake. While she demonstrated understanding, she stated that she'd been eating one meal a day since the age of 18 and was not going to change and she did not want to do a fluid restriction because, my salt is always low. She is discharged home in improved condition on renally dosed ciprofloxacin to complete a 7 day course (she got a dose of ciprofloxacin prior to discharge) to treat pansensitive E coli bacteremia and pyelonephritis. Time Spent with Patient Time attestation: Total time spent providing and/or coordinating discharge services: Today I spent 40 minutes seeing and discharging the patient, reviewing [facility] notes/diagnostics/labs, discussing the care plan with our care team that includes social work, PT/OT, pharmacy, RT, prison and documenting my impressions and plan in the medical record. Exam Narrative: Exam Narrative: General: No acute distress. Awake, alert, oriented. No pallor. No jaundice. Oropharynx: Clear. Mucous membranes moist. Cardiovascular: Regular rate and rhythm. No murmurs, gallops, or rubs. Respiratory: Clear to auscultation bilaterally. No wheezes or crackles. Abdomen: Bowel sounds present. Soft, nondistended, nontender. Extremities: No lower extremity edema. Const: Vital Signs, click to edit/add: Vital Signs - 24 hr 01/12/25 19:00 01/12/25 20:03 01/12/25 22:59 Temperature 98.3 F 98.3 F Pulse Rate [Pulse Oximeter] 85 85 77 Respiratory Rate 18 18 18 Blood Pressure [Le ft Arm] 117/73 94/58 L Pulse Oximetry 98 95 Oxygen Delivery Me thod Room Air Room Air 01/13/25 03:00 01/13/25 07:45 01/13/25 08:00 Temperature 97.6 F 98.1 F Pulse Rate [Pulse Oximeter] 73 78 78 Respiratory Rate 20 18 18 Blood Pressure [Le ft Arm] 118/57 L 119/51 L Pulse Oximetry 98 99 Oxygen Delivery Me thod Room Air Room Air DS: Data Data Completed and Pending Completed studies during hospitalization: 01/10/2025 EKG: Normal sinus rhythm, 84 beats per minute, low-voltage QRS, cannot rule out anterior infarct, age undetermined. Ordering Physician: Brady Adams M.D. Date of Service: 01/10/25 Procedure(s): CT abdomen pelvis wo [facility] Accession Number(s): [id number] cc: Brady Adams M.D.; Que Gutierrez M.D.~ For Patients: As a result of the Century Cures Act, medical imaging exams and procedure reports are released immediately into your electronic medical record. You may view this report before your referring provider. If you have questions, please contact your health care provider. Indication: VOMITING, ABDOMINAL PAIN, DIABETIC COMPLICATIONS Technique: Noncontrast CT abdomen and pelvis Please note that all CT scans at this facility use dose modulation, iterative reconstruction, and/or weight-based dosing when appropriate to reduce radiation dose to as low as reasonably achievable. Comparison: 03/26/2021 Findings: Mild scarring within the left lower lobe. No pleural effusion. The liver is unremarkable. Small stone in the gallbladder. No biliary obstruction. The spleen is unremarkable. Normal pancreas. Thickening of the left adrenal gland. Normal right adrenal gland. Mild ectopia of the left kidney is unchanged. No left-sided hydronephrosis. Ectopic position of the right kidney. The right kidney has enlarged compared to the prior study and there are no inflammatory changes about the right kidney with curvilinear densities. No evidence of a renal stone. The bladder is normal. No bladder stone. Sigmoid diverticulosis. No diverticulitis. Diverticulosis is present elsewhere throughout the colon. Normal appendix. No bowel obstruction. No drainable fluid collection. AVN of the left femoral head without collapse. Degenerative disc disease L5-S1. 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 The right ureter is also distended although no radiopaque stone is noted. Please note that all CT scans at this facility use dose modulation, iterative reconstruction, and/or weight-based dosing when appropriate to reduce radiation dose to as low as reasonably achievable. Dictated by Camilo Suggs MD @ 01/10/2025 3:23:49 PM (Electronically Signed) Ordering Physician: Dolores SMITH Date of Service: 01/10/25 Procedure(s): US renal bladder Accession Number(s): [id number] cc: Dolores SMITH; Que Gutierrez M.D.~ For Patients: As a result of the Cures Act, medical imaging exams and procedure reports are released immediately into your electronic medical record. You may view this report before your referring provider. If you have questions, please contact your health care provider. Indication: Pain, question right pyelonephritis, right ureteral distension Technique: Sonographic evaluation of the kidneys and bladder Comparison: CT abdomen pelvis performed same day Findings: Right: 10.9 x 4.9 x 4.4 centimeters. Suboptimal examination due to location. Ectopic kidney again demonstrated. Slight dilation of the renal pelvis and proximal ureter noted, though appears decompressed on postvoid imaging. No calculi. Left: 7.1 x 4.3 x 6.3 centimeters. No hydronephrosis. No calculi. Bladder: Unremarkable. Near-complete emptying postvoid. Impression: Suboptimal examination due to location of ectopic right kidney. There appears to be a dilated renal pelvis and ureter, though this appears decompressed on postvoid imaging and may be transient or physiologic. Dictated by Antwon Avalos MD @ 01/10/2025 6:24:47 PM (Electronically Signed) Labs on day of discharge: Labs from last 24 hours 01/13/25 01/12/25 06:10 14:58 WBC 7.62 RBC 3.11 L Hgb 9.0 L Hct 27.0 L MCV 87 MCH 29 MCHC 33 Plt Count 151 Sodium 130 L 128 L Potassium 3.9 Chloride 106 Carbon Dioxide 19 L Anion Gap 5 L BUN 49 H Creatinine 1.7 H Estimated Creat Clear 21.92 Estimated GFR 31 Glucose 337 H Calcium 8.8 Discharge Plan Discharge Disposition: Home, Self-Care Date of Admission: 01/10/25 17:21 Attending Provider on Discharge: Marina Dexter Primary Care Provider: Que Gutierrez Condition: Improved Anticipated Discharge Date/Time: 01/13/25 11:36 Discharge Medications: New ciprofloxacin HCl 500 mg tablet 500 mg PO DAILY 6 Days Qty: 6 0RF Continued albuterol sulfate 90 mcg/actuation HFA aerosol inhaler 2 puff inhalation Q4-6H PRN gabapentin 600 mg tablet 900 mg PO TID furosemide 40 mg tablet 60 mg PO .prn Rx Instructions: take 60mg as needed for weight gain of 3lbs in 1 day or 5lbs in 1 week atorvastatin 40 mg tablet 40 mg PO HS cetirizine 10 mg tablet 10 mg PO DAILY allopurinol 100 mg tablet 100 mg PO DAILY aspirin 81 mg tablet,delayed release (DR/EC) 81 mg PO DAILY epinephrine 0.3 mg/0.3 mL auto-injector 0.3 mg IM ONCE PRN Rx Instructions: allergic reaction dapagliflozin propanediol [Farxiga] 10 mg tablet 10 mg PO DAILY insulin aspart U-100 [Novolog FlexPen U-100 Insulin] 100 unit/mL (3 mL) insulin pen 10 unit subcut DAILY Rx Instructions: before supper meal isosorbide mononitrate 30 mg tablet extended release 24 hr 15 mg PO DAILY meclizine 25 mg tablet 25 mg PO TID PRN mirtazapine 30 mg tablet 45 mg PO HS losartan 25 mg tablet 12.5 mg PO DAILY metoprolol succinate 25 mg tablet extended release 24 hr 25 mg PO DAILY mecobal-levomefolat Ca-B6 phos [Foltanx] 2-3-35 mg tablet 1 tab PO BID nitroglycerin 0.4 mg tablet, sublingual 0.4 mg sublingual Q5M PRN omeprazole 20 mg tablet,delayed release (DR/EC) 20 mg PO BID Ozempic 2 mg/dose (8 mg/3 mL) pen injector 2 mg subcut .once weekly tramadol 50 mg tablet 50 - 100 mg PO HS PRN (Reason: pain) spironolactone 25 mg tablet 12.5 mg PO DAILY insulin glargine [Lantus Solostar U-100 Insulin] 100 unit/mL (3 mL) insulin pen 16 unit subcut HS Discharge Orders: Discharge Order (Routine); Ordered 01/13/25 Ordered By: Marina Dexter Activity Level: Activity as Tolerated Activity Detail: [facility] Discharge Diet: Diabetic and 2000 ml Fluid Restriction Diet Detail: Diabetic protein shake once daily Follow Up Appointments: Que Gutierrez MD [Primary Care Provider, Family Practice] Referral Note: 3-5 days, BMP Forms: MyHealth Info Instructions
[2025-01-13] MEDS: INSULIN ASPART 100 UNIT/ML SUBCUT (12:12)
[2025-01-13] MEDS: CIPROFLOXACIN 500 MG TABLET PO (12:14)
[2025-01-13] MEDS: TRAMADOL HCL 50 MG TABLET PO (13:45)
--- NOTE | 2025-01-13 16:37 | PC.NURSE ---
End of Shift: Patient pleasant and cooperative, A&O. VSS, afebrile. SpO2 maintained above 90% on RA. Patient reports abdominal pain this shift, managed with PRN medication, see MAR. IV removed with tip intact. Discharge instructions provided, all questions answered. D/C to home via wheelchair.
--- NOTE | 2025-01-13 17:15 | ED.GENADULT ---
HPI - General Adult General Date Seen: 01/10/25 Chief complaint: Diabetic Related Problem Stated complaint: Diabetic complications Time Seen by Provider: 01/10/25 13:21 History of Present Illness HPI narrative: This is an addendum to my ER note from 01/10/2025. I inadvertently admitted the patient's physical exam from my prior note. Physical exam Constitutional: Appears well-developed and well-nourished. Alert. Initially a poor historian but subsequently much more conversant HENT: Head: Atraumatic. Nose: Nose normal. Mouth/Throat: Oral mucosa is clear but dry. no trismus. Eyes: Conjunctivae normal. EOM normal. Pupils equal, round, and reactive to light. No scleral icterus. Neck: Normal range of motion. Neck supple. No tracheal deviation present. Cardiovascular: Normal rate, regular rhythm. No gallop. No friction rub. No murmur heard. Symmetric radial artery pulses Pulmonary/Chest: Effort normal. No stridor. No respiratory distress. No wheezes. No rales. No rhonchi . No tenderness. Abdominal: Soft. Bowel sounds normal. No distension. Non tympanic No mass. Fairly diffuse tenderness, more in the left lower quadrant/left side. No rebound. No guarding. Musculoskeletal: RUE: Normal range of motion. No tenderness. No deformity LUE: Normal range of motion. No tenderness. No deformity RLE: Normal range of motion. No edema. No tenderness. No deformity LLE: Normal range of motion. No edema. No tenderness. No deformity Neurological: Alert and oriented to person, place, and time. Normal strength. CN II-VII intact. No sensory deficit. GCS eye subscore is 4. GCS verbal subscore is 5. GCS motor subscore is 6. Normal coordination Skin: Skin is warm and dry. No rash noted. No pallor. Normal capillary refill. Psychiatric: Normal mood. Normal affect. Related Data Home Medications ?Medication ?Instructions ?Recorded ?Confirmed albuterol sulfate 90 mcg/actuation 2 puff inhalation Q4-6H PRN 08/31/22 01/10/25 aerosol inhaler gabapentin 600 mg tablet 900 mg PO TID 08/31/22 01/10/25 allopurinol 100 mg tablet 100 mg PO DAILY 01/10/25 01/10/25 aspirin 81 mg tablet,delayed 81 mg PO DAILY 01/10/25 01/10/25 release atorvastatin 40 mg tablet 40 mg PO HS 01/10/25 01/11/25 cetirizine 10 mg tablet 10 mg PO DAILY 01/10/25 01/10/25 dapagliflozin propanediol 10 mg 10 mg PO DAILY 01/10/25 01/10/25 tablet (Farxiga) epinephrine 0.3 mg/0.3 mL 0.3 mg IM ONCE PRN 01/10/25 01/10/25 injection, auto-injector furosemide 40 mg tablet 60 mg PO .prn 01/10/25 01/10/25 insulin aspart U-100 100 unit/mL 10 unit subcut DAILY 01/10/25 01/10/25 (3 mL) subcutaneous pen (Novolog FlexPen U-100 Insulin aspart) insulin glargine 100 unit/mL (3 16 unit subcut HS 01/10/25 01/10/25 mL) subcutaneous pen (Lantus Solostar U-100 Insulin) isosorbide mononitrate 30 mg 15 mg PO DAILY 01/10/25 01/10/25 tablet,extended release 24 hr losartan 25 mg tablet 12.5 mg PO DAILY 01/10/25 01/10/25 meclizine 25 mg tablet 25 mg PO TID PRN 01/10/25 01/10/25 mecobalamin-levomefolate 1 tab PO BID 01/10/25 01/10/25 calcium-pyridoxal phos 2 mg-3 mg-35 mg tablet (Foltanx) metoprolol succinate 25 mg 25 mg PO DAILY 01/10/25 01/10/25 tablet,extended release 24 hr mirtazapine 30 mg tablet 45 mg PO HS 01/10/25 01/10/25 nitroglycerin 0.4 mg sublingual 0.4 mg sublingual Q5M PRN 01/10/25 01/10/25 tablet omeprazole 20 mg tablet,delayed 20 mg PO BID 01/10/25 01/10/25 release semaglutide 2 mg/dose (8 mg/3 mL) 2 mg subcut .once weekly 01/10/25 01/10/25 subcutaneous pen injector (Ozempic) spironolactone 25 mg tablet 12.5 mg PO DAILY 01/10/25 01/10/25 tramadol 50 mg tablet 50 - 100 mg PO HS PRN pain 01/10/25 01/10/25 Previous Rx's ?Medication ?Instructions ?Recorded ciprofloxacin HCl 500 mg tablet 500 mg PO DAILY 6 days #6 tabs 01/13/25 Allergies Allergy/AdvReac Type Severity Reaction Status Date / Time latex Allergy Unknown Verified 01/10/25 13:22 morphine Allergy Unknown Verified 01/10/25 13:22 [facility] Medical History (Updated 01/13/25 @ 11:59 by Marina Dexter MD) Myocardial infarct ?I21.9 - Acute myocardial infarction, unspecified (ICD-10) Hypertension ?I10 - Essential (primary) hypertension (ICD-10) Peripheral neuropathy ?G62.9 - Polyneuropathy, unspecified (ICD-10) YAMILETH (obstructive sleep apnea) ?G47.33 - Obstructive sleep apnea (adult) (pediatric) (ICD-10) Fibromyalgia ?M79.7 - Fibromyalgia (ICD-10) CKD (chronic kidney disease) ?N18.9 - Chronic kidney disease, unspecified (ICD-10) COPD (chronic obstructive pulmonary disease) ?J44.9 - Chronic obstructive pulmonary disease, unspecified (ICD-10) Chronic back pain ?M54.9 - Dorsalgia, unspecified (ICD-10) ?G89.29 - Other chronic pain (ICD-10) CAD (coronary artery disease) ?I25.10 - Atherosclerotic heart disease of [place] coronary artery without angina pectoris (ICD-10) Mixed hyperlipidemia ?E78.2 - Mixed hyperlipidemia (ICD-10) Idiopathic gout ?M10.00 - Idiopathic gout, unspecified site (ICD-10) Acute on chronic systolic (congestive) heart failure ?I50.23 - Acute on chronic systolic (congestive) heart failure (ICD-10) Depression ?F32.A - Depression, unspecified (ICD-10) GERD (gastroesophageal reflux disease) ?K21.9 - Gastro-esophageal reflux disease without esophagitis (ICD-10) Diabetes mellitus type 2, insulin dependent ?E11.9 - Type 2 diabetes mellitus without complications (ICD-10) ?Z79.4 - nursing home (current) use of insulin (ICD-10) Social History What is your current living situation?: I presently have a place to live Problems where you live: no known problems Problems where you live details: none In the past 12 months, utilities in danger of being shut off: no In past 12 months, lack of transportation kept you from medical appts, meetings, work, or getting things needed for daily living: no In the past 12 mos, have been you worried that your food would run out before you had money to buy more?: never true In the past 12 mos, the food you bought just didn't last and you didn't have money to buy more?: never true Highest level of school completed/degree received: Associate degree: occupational, technical, vocational program Smoking Status: Never smoker Non-prescribed substance use: denies use Caffeine: Yes (mini cokes) How often does anyone, including family, friends and others, physically hurt you: never How often does anyone, including family, friends and others, insult or talk down to you: never How often does anyone, including family, friends and others, threaten you with harm: never How often does anyone, including family, friends and others, scream or curse at you: never service: No Course Vital Signs Vital signs: Initial Vital Signs Temperature 98.8 F 01/10/25 13:22 Temperature Source Temporal Artery Scan 01/10/25 13:22 Pulse Rate 87 01/10/25 13:22 Respiratory Rate 16 01/10/25 13:22 Blood Pressure 130/75 01/10/25 13:22 Blood Pressure Mean 93 01/10/25 13:22 Blood Pressure Position High-Fowlers 01/10/25 13:22 Pulse Oximetry 98 01/10/25 13:22 Oxygen Delivery Method Room Air 01/10/25 13:22 Vital Signs Temperature 98.8 F 01/10/25 13:22 Pulse Rate 87 01/10/25 13:22 Respiratory Rate 16 01/10/25 13:22 Blood Pressure 130/75 01/10/25 13:22 Pulse Oximetry 98 01/10/25 13:22 Oxygen Delivery Method Room Air 01/10/25 13:22 Temperature 98.1 F 01/13/25 11:00 Pulse Rate 72 01/13/25 11:00 Respiratory Rate 18 01/13/25 11:00 Blood Pressure 98/69 01/13/25 11:00 Pulse Oximetry 98 01/13/25 11:00 Oxygen Delivery Method Room Air 01/13/25 11:00 Medications Administered Medications: Discontinued Medications Generic Name Dose Route Start Last Admin Trade Name Freq PRN Reason Stop Dose Admin Acetaminophen 975 mg 01/10/25 17:02 01/12/25 19:39 Acetaminophen 325 Mg Tablet PO 975 mg Q6H PRN Administration Allopurinol 100 mg 01/11/25 09:00 01/11/25 10:33 Allopurinol 100 Mg Tablet PO Not Given DAILY ARTURO Allopurinol 100 mg 01/11/25 21:00 01/12/25 20:40 Allopurinol 100 Mg Tablet PO 100 mg HS ARTURO Administration Aspirin 81 mg 01/11/25 09:00 01/11/25 10:18 Aspirin 81 Mg Tablet Ec PO Not Given DAILY ARTURO Atorvastatin Calcium 40 mg 01/10/25 18:00 01/10/25 18:21 Atorvastatin Calcium 40 Mg Tablet PO 40 mg QPM ARTURO Administration Atorvastatin Calcium 40 mg 01/11/25 21:00 01/12/25 20:40 Atorvastatin Calcium 40 Mg Tablet PO 40 mg HS ARTURO Administration Cetirizine HCl 10 mg 01/11/25 09:00 01/13/25 08:57 Cetirizine Hcl 10 Mg Tablet PO 10 mg DAILY ARTURO Administration Ciprofloxacin 500 mg 01/13/25 12:00 01/13/25 12:14 Ciprofloxacin 500 Mg Tablet PO 01/13/25 12:01 500 mg ONCE ONE Administration Enoxaparin Sodium 30 mg 01/10/25 17:02 01/10/25 18:20 Enoxaparin 30 Mg/0.3ml Inj SUBCUT 30 mg Q24H ARTURO Administration Gabapentin 900 mg 01/10/25 21:00 01/13/25 13:33 Gabapentin 600 Mg Tablet PO 900 mg TID ARTURO Administration Sodium Chloride 1,000 mls @ 1,000 mls/hr 01/10/25 13:45 01/10/25 15:46 0.9 % Sodium Chloride 1000 Ml IV 01/10/25 14:44 Infused .Q1H ARTURO Infusion Ceftriaxone Sodium 1 gm/ 100 mls @ 200 mls/hr 01/10/25 15:38 01/10/25 16:39 Sodium Chloride IVPB 01/10/25 15:39 Infused ONCE ONE Infusion Ceftriaxone Sodium 1 gm/ 100 mls @ 200 mls/hr 01/10/25 15:40 01/10/25 16:08 Sodium Chloride IVPB 01/10/25 15:41 Not Given ONCE ONE Sodium Chloride 1,000 mls @ 1,000 mls/hr 01/10/25 15:45 01/10/25 17:57 0.9 % Sodium Chloride 1000 Ml IV 01/10/25 16:44 Infused .Q1H ARTURO Infusion Sodium Chloride 1,000 mls @ 125 mls/hr 01/10/25 17:02 01/13/25 01:15 0.9 % Sodium Chloride 1000 Ml IV Infused .Q8H ARTURO Infusion Ceftriaxone Sodium 2 gm/ 100 mls @ 200 mls/hr 01/11/25 16:00 01/12/25 17:16 Sodium Chloride IVPB Infused Q24H ARTURO Infusion Lactated Ringer's 1,000 mls @ 125 mls/hr 01/11/25 09:05 01/11/25 21:52 Lactated Ringers 1000 Ml IV Infused .Q8H ARTURO Infusion Insulin Aspart 0 unit 01/10/25 17:30 01/13/25 12:12 Insulin Aspart 100 Unit/Ml SUBCUT 4 unit ACHS [facility] Administration Protocol Insulin Glargine 16 unit 01/11/25 21:00 01/12/25 20:41 Insulin Glargine,Hum.Rec.Anlog 100 Unit/Ml Insuln.Pen SUBCUT 16 unit HS [facility] Administration Insulin Human Regular 10 unit 01/10/25 15:46 01/10/25 16:06 Insulin Regular, Human 100 Unit/Ml Vial SUBCUT 01/10/25 15:47 10 unit ONCE ONE Administration Isosorbide Mononitrate 15 mg 01/11/25 09:00 01/13/25 08:57 Isosorbide Mononitrate Er 30 Mg Tab PO 15 mg DAILY ARTURO Administration Ketorolac Tromethamine 15 mg 01/10/25 13:45 01/10/25 14:23 Ketorolac 15 Mg/Ml Inj IVP 01/10/25 13:46 Not Given ONCE ONE Losartan Potassium 12.5 mg 01/11/25 09:00 01/11/25 10:33 Losartan Potassium 50 Mg Tablet PO Not Given DAILY ARTURO Losartan Potassium 12.5 mg 01/11/25 21:00 01/12/25 20:39 Losartan Potassium 50 Mg Tablet PO 12.5 mg HS ARTURO Administration Metoprolol Succinate 25 mg 01/11/25 09:00 01/13/25 08:56 Metoprolol Succinate (Xl) 25 Mg Tab PO 25 mg DAILY [facility]URO Administration Mirtazapine 45 mg 01/10/25 21:00 01/12/25 20:36 Mirtazapine 15 Mg Tablet PO 45 mg HS ARTURO Administration Dapagliflozin 0 mg 01/11/25 09:05 01/13/25 08:58 Propanediol [Farxiga PO Not Given ] 10 Mg Tablet DAILY ARTURO Omeprazole 20 mg 01/10/25 21:00 01/13/25 08:57 Omeprazole [address] PO 20 mg BID ARTURO Administration Ondansetron HCl 4 mg 01/10/25 13:45 01/10/25 14:41 Ondansetron 2 Mg/Ml Inj IVP 01/10/25 13:46 4 mg ONCE ONE Administration Polyethylene Glycol 17 gm 01/10/25 17:02 01/12/25 12:48 Polyethylene Glycol 3350 17 Gm Pack PO 17 gm DAILY PRN Administration Polyethylene Glycol 17 gm 01/13/25 09:45 01/13/25 10:14 Polyethylene Glycol 3350 17 Gm Pack PO 01/13/25 09:46 Not Given ONCE ONE Sodium Chloride 5 ml 01/10/25 21:00 01/13/25 08:58 Sodium Chloride 0.9 % (Flush) 10 Ml Syringe IVF 5 ml BID ARTURO Administration Spironolactone 12.5 mg 01/13/25 09:00 01/13/25 08:57 Spironolactone 25 Mg Tablet PO 12.5 mg DAILY ARTURO Administration Tramadol HCl 50 mg 01/10/25 17:02 01/13/25 13:45 Tramadol Hcl 50 Mg Tablet PO 50 mg HS PRN Administration Pain Medical Decision Making Lab Data Labs: Lab Results 01/10/25 01/10/25 01/10/25 Range/Units 13:20 13:50 13:51 WBC 12.70 H (4.50-11.00) K/uL RBC 3.55 L (4.00-5.20) m/uL Hgb 10.3 L (12.0-16.0) gm/dL Hct 30.7 L (33.0-51.0) % MCV 87 (80-100) fL MCH 29 (26-34) pg MCHC 34 (32-36) gm/dL RDW Coeff of Patricia 14.1 (11.5-15.5) % Plt Count 166 (140-440) K/uL Neut % (Auto) 91.9 H (42.0-72.0) % Lymph % (Auto) 3.9 L (20-44) % [place] % (Auto) 3.8 (0.0-11.0) % Eos % (Auto) 0.0 (0.0-7.0) % Baso % (Auto) 0.0 (0.0-3.0) % Neut # (Auto) 11.70 H (1.7-7.0) K/uL Lymph # (Auto) 0.50 L (0.90-2.90) K/uL [place] # (Auto) 0.50 (0.00-0.90) K/UL Eos # (Auto) 0.00 (0.00-0.50) K/uL Baso # (Auto) 0.00 (0.00-0.30) K/uL Abs Immat Gran (auto) 0.10 (0.00-0.30) K/uL Imm/Tot Granulo (auto) 0.4 % VBG pH 7.401 (7.32-7.43) VBG pCO2 33 L (40-50) mmHG VBG pO2 45.1 (25-47) mmHG VBG HCO3 21 (21-28) mmol/L Sodium 123 L* (135-149) mmol/L Potassium 4.6 (3.6-5.1) mmol/L Chloride 92 L (96-114) mmol/L Carbon Dioxide 20 (20-32) mmol/L Anion Gap 11 (7-15) mEq/L BUN 46 H (7-30) mg/dL Creatinine 2.0 H (0.5-1.5) mg/dL Estimated Creat Clear 18.63 Estimated GFR 25 ml/min Glucose 475 H* (60-115) mg/dL Lactate 1.5 (0.5-1.9) mmol/L Calcium 9.8 (8.4-10.6) mg/dL Magnesium 2.0 (1.5-2.6) mg/dL Total Bilirubin 0.6 (0.1-1.5) mg/dL AST 17 (12-35) U/L ALT 17 (4-35) U/L Alkaline Phosphatase 99 (40-150) U/L Troponin I < 0.01 (0.01-0.04) ng/mL Total Protein 6.2 (6.0-8.3) g/dL Albumin 3.3 (3.3-5.0) g/dL Lipase 79 (23-300) U/L Urine Color Yellow (Yellow) Urine Appearance Cloudy A (Clear) Urine pH 6.0 (5.0-8.5) Ur Specific [place] <= 1.005 (1.000-1.030) Urine Protein 2+ A (Negative) Urine Glucose (UA) 2+ A (Negative) Urine Ketones Negative (Negative) Urine Blood 3+ A (Negative) Urine Nitrite Negative (Negative) Urine Bilirubin Negative (Negative) Urine Urobilinogen 0.2 (0.2-1.0) Ur Leukocyte Esterase Trace A (Negative) Urine RBC 2-5 A (0-2) Urine WBC 2-5 (0-5) Ur Squamous Epith Cells Few (None-Few) Urine Bacteria Many A (None) SARS-CoV-2 (PCR) (Negative) Influenza Type A (PCR) (Negative) Influenza Type B (PCR) (Negative) RSV (PCR) (Negative) POC Glucose 504 H* (60-115) mg/dl POC Creatinine (0.6-1.3) mg/dl 01/10/25 01/10/25 Range/Units 14:06 14:18 WBC (4.50-11.00) K/uL RBC (4.00-5.20) m/uL Hgb (12.0-16.0) gm/dL Hct (33.0-51.0) % MCV (80-100) fL MCH (26-34) pg MCHC (32-36) gm/dL RDW Coeff of Patricia (11.5-15.5) % Plt Count (140-440) K/uL Neut % (Auto) (42.0-72.0) % Lymph % (Auto) (20-44) % [place] % (Auto) (0.0-11.0) % Eos % (Auto) (0.0-7.0) % Baso % (Auto) (0.0-3.0) % Neut # (Auto) (1.7-7.0) K/uL Lymph # (Auto) (0.90-2.90) K/uL [place] # (Auto) (0.00-0.90) K/UL Eos # (Auto) (0.00-0.50) K/uL Baso # (Auto) (0.00-0.30) K/uL Abs Immat Gran (auto) (0.00-0.30) K/uL Imm/Tot Granulo (auto) % VBG pH (7.32-7.43) VBG pCO2 (40-50) mmHG VBG pO2 (25-47) mmHG VBG HCO3 (21-28) mmol/L Sodium (135-149) mmol/L Potassium (3.6-5.1) mmol/L Chloride (96-114) mmol/L Carbon Dioxide (20-32) mmol/L Anion Gap (7-15) mEq/L BUN (7-30) mg/dL Creatinine (0.5-1.5) mg/dL Estimated Creat Clear Estimated GFR ml/min Glucose (60-115) mg/dL Lactate (0.5-1.9) mmol/L Calcium (8.4-10.6) mg/dL Magnesium (1.5-2.6) mg/dL Total Bilirubin (0.1-1.5) mg/dL AST (12-35) U/L ALT (4-35) U/L Alkaline Phosphatase (40-150) U/L Troponin I (0.01-0.04) ng/mL Total Protein (6.0-8.3) g/dL Albumin (3.3-5.0) g/dL Lipase (23-300) U/L Urine Color (Yellow) Urine Appearance (Clear) Urine pH (5.0-8.5) Ur Specific [place] (1.000-1.030) Urine Protein (Negative) Urine Glucose (UA) (Negative) Urine Ketones (Negative) Urine Blood (Negative) Urine Nitrite (Negative) Urine Bilirubin (Negative) Urine Urobilinogen (0.2-1.0) Ur Leukocyte Esterase (Negative) Urine RBC (0-2) Urine WBC (0-5) Ur Squamous Epith Cells (None-Few) Urine Bacteria (None) SARS-CoV-2 (PCR) Negative SARS-CoV-2 (Negative) Influenza Type A (PCR) Negative PCR FLU A (Negative) Influenza Type B (PCR) Negative PCR FLU B (Negative) RSV (PCR) Negative PCR RSV (Negative) POC Glucose (60-115) mg/dl POC Creatinine 2.3 H (0.6-1.3) mg/dl Discharge Plan Discharge Clinical Impression: Acute pyelonephritis, Acute hyperglycemia, Acute hyponatremia, Acute dehydration Patient Disposition: Admitted As Inpatient Condition: Improved Activity Level: Activity as Tolerated Activity Detail: [facility] Discharge Diet: Diabetic and 2000 ml Fluid Restriction Diet Detail: Diabetic protein shake once daily Procedures ABG Interpretation ABG Results: 01/10/25 13:50 VBG pH 7.401 VBG pCO2 33 L VBG pO2 45.1 VBG HCO3 21
== END 2025-01-13 16:00 | disposition home or self-care (01) | DRG 689 ==
LOC: ED 16:07 → MEDSURG 17:00
PROVIDERS: Family Medicine; Physician Assistant; Admitting Provider Family Medicine; Emergency Provider Emergency Medicine; PCP Family Medicine; Visit Provider Family Medicine
DX: N10 Acute pyelonephritis (principal); I50.43 Acute on chronic combined systolic (congestive) and diastolic (congestive) heart failure; R78.81 Bacteremia; I13.0 Hypertensive heart and chronic kidney disease with heart failure and stage 1 through stage 4 chronic kidney disease, or unspecified chronic kidney disease; E87.1 Hypo-osmolality and hyponatremia; E86.0 Dehydration; E11.65 Type 2 diabetes mellitus with hyperglycemia; E11.40 Type 2 diabetes mellitus with diabetic neuropathy, unspecified; E11.22 Type 2 diabetes mellitus with diabetic chronic kidney disease; N18.32 Chronic kidney disease, stage 3b; Q63.2 Ectopic kidney; B96.20 Unspecified Escherichia coli [E. coli] as the cause of diseases classified elsewhere; R21 Rash and other nonspecific skin eruption; Z79.84 Long term (current) use of oral hypoglycemic drugs; Z79.4 Long term (current) use of insulin; G47.33 Obstructive sleep apnea (adult) (pediatric); J44.9 Chronic obstructive pulmonary disease, unspecified; M1A.00X0 Idiopathic chronic gout, unspecified site, without tophus (tophi); K21.9 Gastro-esophageal reflux disease without esophagitis; F32.A Depression, unspecified; I25.10 Atherosclerotic heart disease of native coronary artery without angina pectoris; I25.2 Old myocardial infarction; E78.2 Mixed hyperlipidemia
CPT/HCPCS: 36415; 74176; 76770; 80048; 80053; 81001; 82565; 82803; 82947; 82962; 83605; 83690; 83735; 84295; 84484; 85025; 85027; 86140; 87040; 87086; 87631; 87800; 93005; 99281; 99284; 99285; A9270; J0696; J1650; J1815; J2405; J7030; J7120